=== PATIENT | female | born 1940 | race Caucasian/White ===

== ENCOUNTER → 2023-05-07 06:55 | Outpatient (REF) | payer OTHER, SELFPAY | LOC: RAD 06:55 | PROVIDERS: ATTENDING PHYSICIAN Family Medicine | DX: R41.4 Neurologic neglect syndrome (principal); R53.1 Weakness | CPT/HCPCS: 70450 ==

== ENCOUNTER → 2023-05-22 08:10 | Outpatient (REF) | payer OTHER, SELFPAY ==
[2023-05-22 09:44] LABS: % Eosinophils 1.1 % (0-6); % Immature Granulocytes 0.5 % (0-0.5); % Lymphocytes 15.2 % (20.5-51.1); % Monocytes 9.7 % (1.7-9.3); % Neutrophils 72.5 % (42.2-75.2); Absolute Basophils 0.1 10^3/uL (0-0.2); Absolute Eosinophils 0.1 10^3/uL (0-0.7); Absolute Monocytes 0.6 10^3/uL (0.1-0.6); Absolute Neutrophils 4.5 10^3/uL (1.4-6.5); Hematocrit 36.5 % (37.0-47.0); Hemoglobin 11.7 g/dL (12.0-16.0); Mean Corp Hgb Conc. 32.1 g/dL (33.0-37.0); Mean Corpuscular Volume 90.6 fL (81.0-99.0); Nucleated Red Blood Cells % 0 %; Platelet Count 312 10^3/uL (130-400); Red Blood Cell Count 4.03 10^6/uL (4.20-5.40); Red Cell Dist. Width 14.7 % (11.5-14.5); White Blood Cell Count 6.3 10^3/uL (4.8-10.8)
[2023-05-22 10:04] LABS: ALT (SGPT) 30 U/L (0-35); AST (SGOT) 37 U/L (14-36); Albumin 3.9 g/dl (3.5-5.0); Alkaline Phosphatase 62 U/L (38-126); Blood Urea Nitrogen 16 mg/dl (7-17); Calcium 9.1 mg/dl (8.4-10.2); Carbon Dioxide 30 mmol/L (22-30); Chloride 103 mmol/L (98-107); Glucose 114 mg/dl (70-99); Iron 76 ug/dl (37-170); Sodium 139 mmol/L (135-145); Total Bilirubin 0.3 mg/dl (0.2-1.3); Total Protein 6.2 g/dl (6.3-8.2); eGFR > 60.00
[2023-05-22 10:14] LABS: Percent Saturation 20 % (20-50); Total Iron Binding Capacity 363 ug/dl (265-497)
[2023-05-22 10:38] LABS: Ferritin 9.1 ng/ml (11.1-264.0)
== END ==
LOC: REG 08:10
PROVIDERS: ATTENDING PHYSICIAN Internal Medicine Gastroenterology; FAMILY PHYSICIAN Family Medicine
DX: D50.0 Iron deficiency anemia secondary to blood loss (chronic) (principal)
CPT/HCPCS: 36415; 80053; 82728; 83540; 83550; 85025

== ENCOUNTER → 2023-05-28 11:24 | Outpatient (REF) | payer OTHER, SELFPAY | LOC: DHCBC/DCA 11:24 | PROVIDERS: ATTENDING PHYSICIAN Internal Medicine; FAMILY PHYSICIAN Family Medicine | DX: I25.10 Atherosclerotic heart disease of native coronary artery without angina pectoris (principal); I48.0 Paroxysmal atrial fibrillation | CPT/HCPCS: 78452; 93017; A9500; J2785 ==

== ENCOUNTER → 2023-06-01 08:17 | Outpatient (REF) | payer OTHER, SELFPAY | LOC: HWRAD 08:17 | PROVIDERS: ATTENDING PHYSICIAN Internal Medicine Gastroenterology; FAMILY PHYSICIAN Family Medicine | DX: R10.33 Periumbilical pain (principal); R10.31 Right lower quadrant pain | CPT/HCPCS: 74177; Q9967 ==

== ENCOUNTER → 2023-06-21 11:06 | Outpatient (REF) | payer OTHER, SELFPAY | LOC: RCS 11:06 | PROVIDERS: ATTENDING PHYSICIAN Internal Medicine; FAMILY PHYSICIAN Family Medicine | DX: I25.10 Atherosclerotic heart disease of native coronary artery without angina pectoris (principal); I48.0 Paroxysmal atrial fibrillation | CPT/HCPCS: 93306 ==

== ENCOUNTER 2023-06-25 09:04 | Outpatient (REF) | payer OTHER, SELFPAY ==
[2023-06-25] VITALS (11 sets, daily range): BP systolic 48–140; BP diastolic 56–95
[2023-06-25 09:27] LABS: % Basophils 1.4 % (0-2); % Eosinophils 0.7 % (0-6); % Immature Granulocytes 0.8 % (0-0.5); % Monocytes 10.2 % (1.7-9.3); % Neutrophils 71.9 % (42.2-75.2); Absolute Basophils 0.1 10^3/uL (0-0.2); Absolute Eosinophils 0.1 10^3/uL (0-0.7); Absolute Immature Granulocytes 0.1 10^3/uL (0-0.05); Absolute Lymphocytes 1.1 10^3/uL (1.2-3.4); Absolute Monocytes 0.7 10^3/uL (0.1-0.6); Absolute Neutrophils 5.2 10^3/uL (1.4-6.5); Hematocrit 37.6 % (37.0-47.0); Hemoglobin 12.2 g/dL (12.0-16.0); Mean Corp Hgb Conc. 32.4 g/dL (33.0-37.0); Mean Corpuscular Hgb 28.2 pg (27.0-31.0); Mean Corpuscular Volume 86.8 fL (81.0-99.0); Mean Platelet Volume 10.4 fL (7.4-10.4); Nucleated Red Blood Cells % 0 %; Platelet Count 288 10^3/uL (130-400); Red Blood Cell Count 4.33 10^6/uL (4.20-5.40); Red Cell Dist. Width 14.3 % (11.5-14.5); White Blood Cell Count 7.2 10^3/uL (4.8-10.8)
[2023-06-25 09:38] LABS: INR 0.99; PT 12.9 Sec (11.4-14.6)
== END 2023-06-25 14:28 | disposition home or self-care (01) ==
LOC: RADI 09:04
PROVIDERS: ATTENDING PHYSICIAN Internal Medicine Hematology & Oncology; FAMILY PHYSICIAN Family Medicine
DX: C7B.8 Other secondary neuroendocrine tumors (principal)
CPT/HCPCS: 88307; 36415; 47000; 76942; 85025; 85610; 88333; 88341; 88342; 99152; 99153

== ENCOUNTER → 2023-07-09 08:28 | Outpatient (REF) | payer OTHER, SELFPAY ==
--- NOTE | 2023-06-30 14:31 | WATCHMAN ---
Watchman
Wathcman Procedure
Referred by:: Krery/Vin
Date of Referral:: 06/30/23
[id number] Score
Age in Years (65=0, 65-74=1, >/=75=2): > or = 75
Sex (Female=+1): Female
Congestive Heart Failure History (Yes=+1): No
Hypertension History (Yes=+1): No
Stroke/TIA/Thromboembolism History (Yes=+2): No
Vascular Disease History (Yes=+1): Yes
Diabetes Mellitus (Yes=+1): No
Score: 4
Anticoagulation Recommendations: Recommend anticoagulation (as validated in nonvalvular fib)
HASBLED Score
Hypertenstion (uncontrolled >160mmHG systolic): No
Renal disease (dialysis, transplant, Cr >2.26mg/dL or >200umol/L): No
Liver disease (cirrhosis or bilirubin >2x normal w/ AST/ALT/AP >3x normal: No
Stroke history: No
Prior major bleeding or predisposition to bleeding: Yes
Labile INR(unsable/high INRs,time in therapeutic range <60%): No
Age >65: Yes
Medication usage predisposing to bleeding(ASA, NSAIDS): No
Alcohol use (>/= 8 drinks/week): No
Score: 2
Risk: Anticoagulation can be considered, however patient does have moderate risk for major bleeding (2/100 patient-years)
Electrocardiogram
Interpretation: abnormal
Heart Rate: 55
Rate: bradycardiac
Physician Visits
Cloth Washer:: Vin
Date of Visit:: 06/30/23
Primary Valet Runner:: Dr. Payne
Date of Visit:: 05/11/23
PCP:: Osmel Chaves
Oral Anticoagulation
Post procedure anticoagulation plan:: The patient needs to be on anticoagulation therapy for 6 weeks following implant. If no leak or migration of the device noted at 45 day follow up LYLA, she would need to be on dual antiplatelet therapy following
the implant. After 6 months of dual antiplatelet therapy, she may go to aspirin alone.
Plan
Plan:: 06/30/2023: Consult received from Dr. Banuelos. Patient in to office today to see him to be evaluated for the Watchman procedure. H/o GI bleed and not currently on OAC for her A-fib. Called and spoke to patient. Recent BMP from end of April.
Normal renal function. Assisted with schedule CT watchman for 07/09/2023 at 0900. Provided with contact information. Allowed for and answered questions.
== END ==
LOC: RAD 08:28
PROVIDERS: ATTENDING PHYSICIAN Internal Medicine Cardiovascular Disease; FAMILY PHYSICIAN Family Medicine
DX: I48.0 Paroxysmal atrial fibrillation (principal)
CPT/HCPCS: 75572; Q9967

== ENCOUNTER → 2023-07-30 07:33 | Outpatient (REF) | payer OTHER, SELFPAY | LOC: PET 07:33 | PROVIDERS: ATTENDING PHYSICIAN Internal Medicine Hematology & Oncology | DX: C7A.00 Malignant carcinoid tumor of unspecified site (principal) | CPT/HCPCS: 78815 ==

== ENCOUNTER → 2023-08-30 08:15 | Outpatient (REF) | payer OTHER, SELFPAY ==
[2023-08-30 08:06] VITALS: BMI 20.2
[2023-08-30 09:20] LABS: % Eosinophils 0.4 % (0-6); % Immature Granulocytes 0.7 % (0-0.5); % Lymphocytes 11.2 % (20.5-51.1); % Neutrophils 79.7 % (42.2-75.2); Absolute Basophils 0.1 10^3/uL (0-0.2); Absolute Immature Granulocytes 0.1 10^3/uL (0-0.05); Absolute Monocytes 0.6 10^3/uL (0.1-0.6); Absolute Neutrophils 7.1 10^3/uL (1.4-6.5); Hematocrit 40.2 % (37.0-47.0); Hemoglobin 12.8 g/dL (12.0-16.0); Mean Corp Hgb Conc. 31.8 g/dL (33.0-37.0); Mean Corpuscular Hgb 28.4 pg (27.0-31.0); Mean Corpuscular Volume 89.1 fL (81.0-99.0); Mean Platelet Volume 11.9 fL (7.4-10.4); Nucleated Red Blood Cells % 0 %; Platelet Count 267 10^3/uL (130-400); Red Blood Cell Count 4.51 10^6/uL (4.20-5.40); Red Cell Dist. Width 15.2 % (11.5-14.5)
[2023-08-30 09:29] LABS: INR 1.07
[2023-08-30 09:47] LABS: ALT (SGPT) 28 U/L (0-35); AST (SGOT) 44 U/L (14-36); Albumin 4.4 g/dl (3.5-5.0); Alkaline Phosphatase 85 U/L (38-126); Blood Urea Nitrogen 20 mg/dl (7-17); Calcium 8.7 mg/dl (8.4-10.2); Carbon Dioxide 28 mmol/L (22-30); Chloride 102 mmol/L (98-107); Estimated Creatinine Clearance 38 ml/min; Glucose 95 mg/dl (70-99); Potassium 4.3 mmol/L (3.5-5.1); Sodium 139 mmol/L (135-145); Total Bilirubin 0.5 mg/dl (0.2-1.3); Total Protein 6.8 g/dl (6.3-8.2); eGFR > 60.00
[2023-09-16 11:22] VITALS: BP 129/72; BP_SYST 22
== END ==
LOC: REG 08:15
PROVIDERS: ATTENDING PHYSICIAN Internal Medicine Cardiovascular Disease; FAMILY PHYSICIAN Family Medicine; OTHER PHYSICIAN Internal Medicine
DX: I48.0 Paroxysmal atrial fibrillation (principal); Z01.818 Encounter for other preprocedural examination
CPT/HCPCS: 36415; 80053; 85025; 85610; 86850; 86900; 86901; 87070; 93005

== ENCOUNTER → 2023-08-30 10:43 | Outpatient (REF) | payer OTHER, SELFPAY ==
[2023-08-30 11:00] LABS: % Eosinophils 0.3 % (0-6); % Immature Granulocytes 0.8 % (0-0.5); % Lymphocytes 10.7 % (20.5-51.1); % Monocytes 7.4 % (1.7-9.3); % Neutrophils 79.8 % (42.2-75.2); Absolute Basophils 0.1 10^3/uL (0-0.2); Absolute Immature Granulocytes 0.1 10^3/uL (0-0.05); Absolute Lymphocytes 0.8 10^3/uL (1.2-3.4); Absolute Monocytes 0.6 10^3/uL (0.1-0.6); Absolute Neutrophils 6.3 10^3/uL (1.4-6.5); Hematocrit 37.7 % (37.0-47.0); Hemoglobin 12.2 g/dL (12.0-16.0); Mean Corp Hgb Conc. 32.4 g/dL (33.0-37.0); Mean Corpuscular Hgb 28.8 pg (27.0-31.0); Mean Corpuscular Volume 88.9 fL (81.0-99.0); Mean Platelet Volume 11.2 fL (7.4-10.4); Nucleated Red Blood Cells % 0 %; Platelet Count 248 10^3/uL (130-400); Red Blood Cell Count 4.24 10^6/uL (4.20-5.40); Red Cell Dist. Width 15.2 % (11.5-14.5); White Blood Cell Count 7.8 10^3/uL (4.8-10.8)
[2023-08-30 11:12] LABS: ALT (SGPT) 28 U/L (0-35); AST (SGOT) 44 U/L (14-36); Albumin 4.4 g/dl (3.5-5.0); Alkaline Phosphatase 83 U/L (38-126); Blood Urea Nitrogen 20 mg/dl (7-17); Calcium 8.8 mg/dl (8.4-10.2); Carbon Dioxide 28 mmol/L (22-30); Chloride 102 mmol/L (98-107); Glucose 95 mg/dl (70-99); Potassium 4.4 mmol/L (3.5-5.1); Sodium 139 mmol/L (135-145); Total Bilirubin 0.5 mg/dl (0.2-1.3); Total Protein 6.8 g/dl (6.3-8.2); eGFR > 60.00
== END ==
LOC: OIDL 10:43
PROVIDERS: ATTENDING PHYSICIAN Internal Medicine Hematology & Oncology
DX: C78.7 Secondary malignant neoplasm of liver and intrahepatic bile duct (principal); C7A.00 Malignant carcinoid tumor of unspecified site
CPT/HCPCS: 80053; 85025

== ENCOUNTER 2023-09-13 20:01 | Inpatient (IN) | payer OTHER, SELFPAY ==
[2023-09-13] VITALS (14 sets, daily range): BP systolic 99–140; BP diastolic 52–108; PULSE 55–66; BMI 20.6
[2023-09-13 17:01] LABS: % Basophils 1.3 % (0-2); % Eosinophils 0.3 % (0-6); % Lymphocytes 12.4 % (20.5-51.1); % Monocytes 8.4 % (1.7-9.3); % Neutrophils 76.6 % (42.2-75.2); Absolute Basophils 0.1 10^3/uL (0-0.2); Absolute Immature Granulocytes 0.1 10^3/uL (0-0.05); Absolute Lymphocytes 1.1 10^3/uL (1.2-3.4); Absolute Monocytes 0.7 10^3/uL (0.1-0.6); Absolute Neutrophils 6.7 10^3/uL (1.4-6.5); Hematocrit 24.3 % (37.0-47.0); Hemoglobin 7.9 g/dL (12.0-16.0); Mean Corp Hgb Conc. 32.5 g/dL (33.0-37.0); Mean Corpuscular Hgb 29.3 pg (27.0-31.0); Mean Platelet Volume 11.5 fL (7.4-10.4); Nucleated Red Blood Cells % 0 %; Platelet Count 264 10^3/uL (130-400); Red Cell Dist. Width 15.2 % (11.5-14.5); White Blood Cell Count 8.7 10^3/uL (4.8-10.8)
[2023-09-13 17:17] LABS: AST (SGOT) 40 U/L (14-36); Albumin 3.8 g/dl (3.5-5.0); Blood Urea Nitrogen 23 mg/dl (7-17); Calcium 8.7 mg/dl (8.4-10.2); Carbon Dioxide 26 mmol/L (22-30); Estimated Creatinine Clearance 44 ml/min; Glucose 114 mg/dl (70-99); Potassium 4.1 mmol/L (3.5-5.1); Total Bilirubin 0.2 mg/dl (0.2-1.3); eGFR > 60.00
[2023-09-13 17:24] LABS: ALT (SGPT) 26 U/L (0-35); Alkaline Phosphatase 73 U/L (38-126); Chloride 102 mmol/L (98-107); Sodium 136 mmol/L (135-145)
--- NOTE | 2023-09-13 17:27 | ED.GENMED ---
History of Present Illness
General
Chief Complaint: Rectal Bleeding
Time Seen by Provider: 09/13/23 16:36
History of Present Illness
History of Present Illness:
83-year-old female presents the emergency department for evaluation of lower GI bleeding/maroon-colored stool for the past 'week and a half or so'. She is a history of atrial flutter currently on Eliquis, scheduled for Watchman procedure tomorrow.
She is began to feel short of breath and generally weak as a result of her symptoms. Denies any chest pain. 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 Last dose of
blood thinners was this morning
Past History
Past History
ED Past Medical History: Arrthythmia (Paroxysmal A. flutter) and COPD
ED Past Surgical History: Gynecological
Social History
Tobacco: Non-smoker
Personal:
Living: with family
Family History
Family History: Negative Early CAD
Review of Systems
Review of Systems
Allergies reviewed?: Yes
All Other Systems: ROS reviewed and negative except as documented in HPI and ROS
Phy Exam
Physical Exam
Physical Exam:
GEN: Well appearing, NAD, WDWN
Eyes: PERRLA, EOMs intact, no scleral icterus
HENT: NCAT, oral mucosa moist
Lungs: CTAB, no wheezes, rales, rhonchi, normal chest wall excursion
Cardiac: RRR, no M/R/G, no peripheral edema. Radial pulses 2+ bilat
Abdomen: Hepatomegaly noted, moderate tenderness to the right upper quadrant
Neuro: AO x 3, no focal deficits to BUE/BLE, normal sensation throughout
MSK: No gross deformity or ecchymosis. No edema. No digital clubbing
Skin: No rashes, petechiae. Normal color, no pallor or jaundice.
Psych: Calm, cooperative, proper hygiene
Course
Orders/Labs/Results
Orders:
Orders
09/13/23 16:52
CT Abd/Pel (IV only)-DH only Urgent
Comment:
Reason For Exam: abd pain, rectal bleeding
09/13/23 16:53
Type+Screen Urgent
Complete Blood Count/With Diff Urgent
Comprehensive Metabolic Panel Urgent
09/13/23 18:24
* Blood Bank Products Urgent
Blood Bank Products: *Packed RBC Leuko(PRBC's)
Quantity: 1
Transfuse Today: Yes
Reason: Anemia
09/13/23 19:33
Admit/Transfer Patient As Directed
Co-Sign Provider:
Level of Care: Inpatient admission
Assign to:: Telemetry
Physician / Group: [email or web address]
Diagnosis: acute hematochezia, acutle blood loss andmeia
Reason for Telemetry: Arrhythmia
Date to Stop Telemetry: 09/16/23
Time to Stop Telemetry: 11:00
Reason for Hospitalization: acute hematochezia, acutle blood loss andmeia
Expected length of stay greater than two midnights?: Yes
ELOS- Estimated Length of Stay in days: 3
I certify the patient meets the requirements for IP care: Yes
PRN Pain Medication Management As Directed
May give lesser potent ordered pain med per pt: Yes
preference::
Protocol:: Medication orders for pain may be administered in a
manner that supports deferring to patient preference
when the pt is:
- Requesting an ordered lesser potent pain medication.
Least to most potent pain medications are defined
as: acetaminophen < NSAID < tramadol < opioids
(morphine, oxycodone, hydromorphone).
- Requesting a lesser dose of the same medication IF
ORDERED.
- Requesting a less intrusive route of administration
if both routes are prescribed by the provider (PO <
IV).
09/13/23 19:35
Code Status As Directed
Resuscitation Status: Full Code
09/13/23 21:21
0.9% Sodium Chloride 1000 ml [Nss] 1,000 ml IV 80 mls/hr
09/13/23 21:21
CARDIOLOGY CONSULT Routine
Consulting Provider: Nicole Weaver
Was physician already notified: Yes
Reason for consult: acute hematochezia, ACBA, on Elquis , Pending watchman on 09/13
GASTROINTESTINAL CONSULT Routine
Consulting Provider: Briana Anton
Was physician already notified: Yes
Reason for consult: acute hematochezia, ACBA, on Elquis , Pending watchman on 09/13
Activity As Directed
Activity Level: With Assistance
INT (Intravenous Needle Therapy) As Directed
Comment: Place 2 IV catheters of the largest bore possible until stable
Orthostatic Vital Signs As Directed
Orthostatic VS Frequency: Now
Comment: then every four hours for twenty-four hours
Pneumatic Compression Sleeves As Directed
Type: Knee high
Vital Signs As Directed
Frequency: Per unit guidelines
DX Deep Vein Thrombosis Video Routine
09/13/23 21:45
Budesonide/Formoterol 160/4.5 [Symbicort 160/4.5 Mcg Inhaler] 2 puff INH R BID
09/13/23 21:55
H&H Q6H
09/13/23 22:00
Digoxin [Lanoxin] 125 mcg PO HS
Famotidine [Pepcid] 20 mg IV HS
09/14/23 06:00
Comprehensive Metabolic Panel IN AM
Levothyroxine [Synthroid] 125 mcg PO MoTuWeThFrSa@0600
09/14/23 08:00
mirabegron [Myrbetriq] 25 mg PO DAILY
09/16/23 11:00
DC Protocol for Telemetry ONCE
09/19/23 06:00
Levothyroxine [Synthroid] 187.5 mcg PO FINN@0600
Abnormal Lab Results
09/13/23
16:53
RBC 2.70 L 10^6/uL
(4.20-5.40)
Hgb 7.9 L g/dL
(12.0-16.0)
Hct 24.3 L %
(37.0-47.0)
MCHC 32.5 L g/dL
(33.0-37.0)
RDW 15.2 H %
(11.5-14.5)
MPV 11.5 H fL
(7.4-10.4)
Abs Immat Gran (auto) 0.1 H 10^3/uL
(0-0.05)
Absolute Neuts (auto) 6.7 H 10^3/uL
(1.4-6.5)
Absolute Lymphs (auto) 1.1 L 10^3/uL
(1.2-3.4)
Absolute Monos (auto) 0.7 H 10^3/uL
(0.1-0.6)
Immature Gran % 1.0 H %
(0-0.5)
Neutrophils % 76.6 H %
(42.2-75.2)
Lymphocytes % 12.4 L %
(20.5-51.1)
BUN 23 H mg/dl
(7-17)
Glucose 114 H mg/dl
(70-99)
AST 40 H U/L
(14-36)
Total Protein 6.0 L g/dl
(6.3-8.2)
Crossmatch IS Only See Detail
09/13/23 16:53
09/13/23 16:53
Vital Signs
Initial and Last Documented VS:
Initial Vital Signs
Temp Pulse Resp BP Pulse Ox
98.3 F 65 18 123/53 99
09/13/23 16:10 09/13/23 16:10 09/13/23 16:10 09/13/23 16:10 09/13/23 16:10
Last Documented Vital Signs
Temp Pulse Resp BP Pulse Ox
98.3 F 50 18 128/64 97
09/13/23 21:46 09/13/23 22:19 09/13/23 21:46 09/13/23 21:46 09/13/23 21:46
MDM/Problems Addressed
MDM/Problems Addressed:
Hemoglobin is 7.9, patient is experienced roughly a 4 g drop in the past 2 weeks. No evidence for active bleeding in the emergency department. Will be admitted to the hospitalist service for blood transfusion and further GI workup
*Critical Care Note
Total Time (30-74mins, 75-104mins- exclusive of procedures): 32 minutes
comment:
Critical care time: 32 minutes
Critical care time was exclusive of: Separately billable procedures, treating other patients, and teaching time
Critical care was necessary to treat or prevent imminent or life-threatening deterioration of the following conditions: Blood loss anemia
Critical care time spent personally by me on the following activities:
[x] Review of old charts
[x] Obtaining history from patient or surrogate
[x] Ordering and review of the laboratory studies
[x] Ordering and review of radiographic studies
[x] Ordering and performing treatments and interventions
[x] Patient patient's response to treatment
[x] Development of treatment plan with patient or surrogate
ED Attending Note
-
Portions of this chart may have been created with voice recognition software.� Occasional wrong word or��sound alike� substitutions may have occurred due to the inherent limitations of voice recognition software.
Discharge Plan
Departure
Patient Disposition: Admit
Date of Disposition: 09/13/23
Time of Disposition: 19:07
Admit to: Med/Surg
Presentation/result/management discussed w/ accepting MD/DO: Hospitalist
Patient with high blood pressure during this ER visit?: No
Discharge Problem:
Acute lower gastrointestinal bleeding, Acute blood loss anemia (ABLA)
Interventions
Interventions:
*Risk Screen - Suicide Last Done: 09/13/23 16:10
*General Assessment Last Done: 09/13/23 16:10
*Neglect/Abuse Screening Last Done: 09/13/23 16:10
ED- Fall Risk Assessment Last Done: 09/13/23 16:48
*ED COVID-19 Vaccine History Last Done: 09/13/23 21:17
*Nursing Disposition Last Done: 09/13/23 21:17
BU-Hohnjo-Xpycqppjys Assessment Last Done: 09/13/23 16:48
ED- Cardiac Assessment Last Done: 09/13/23 16:48
ED- Pulmonary Assessment Last Done: 09/13/23 16:48
Discharge Date and Time
Discharge Date/Time: 09/13/23 21:18
--- NOTE | 2023-09-13 19:29 | HPS.HSE ---
Addendum entered and electronically signed by Wolf Anguiano MD 09/14/23 13:23:
Correction:
Recent watchman implant plan for 09/14/23
Paroxysmal atrial fibrillation HX .
Atrial flutter HX .
SVT HX
- Pending watchman implant on Wednesday <del>09/13/23</del> 09/14/23
- Held Eliquis due to acute LGIB
- will need to delay watchman implant per CBC card text consult.
Addendum entered and electronically signed by Wolf Anguiano MD 09/13/23 19:54:
ADDENDUM:
- will need to delay watchman implant per CBC card text consult.
Original Note:
Family Physician
-
Family Physician: Osmel Chaves
Chief Complaint
-
Rectal bleed mixed with stool
History of Present Illness
83F HX on Eliquis, pending Watchman implant on 09/13/23 reduce stroke risk in a patient that is high risk for recurrent GI bleed , multiple arrhythmia including paroxysmal atrial fibrillation, SVT,and prior atrial flutter seen aRT for dark
blood mixed with stools
Acute hematochezia
- onset since this AM
- on Eliquis - last dose was around 8am 09/13/23
- associated with SoB
- Hgb Hgb 7.9 - baseline hi 12s (08/30/23)dropped tootal 4 gb over 2 weeks
- VSS stable
Medical History
Past Medical History
Past Medical History: Reports Other
Additional Past Medical History:
1. Paroxysmal atrial fibrillation.
2. Atrial flutter.
3. SVT.
4. Hyperlipidemia.
5. Recurrent GI bleed requiring transfusion.
6. CAD,99% distal LAD lesion.
7. Gastroesophageal reflux disease.
8. Angiodysplasia of the cecum.
9. Colonic polyps.
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
liver and adrenals.
11. COPD.
12. Pulmonary nodules.
13. Hypothyroidism.
14. Osteoporosis.
15. Balance and gait disturbance.
Past Surgical History: Reports Other
Additional Past Surgical History:
Partial thyroidectomy, total
abdominal hysterectomy.
Social History
Tobacco: Non-smoker
Alcohol: Occasional
Drug: None
Family History
Family History: Not pertinent
Allergies / Home Medications
Allergies reflects when Allergies were last updated in [employer].
Home Medications with original date entered in [employer]
Allergy/Medication List:
Allergies
Allergy/AdvReac Type Severity Reaction Status Date / Time
ampicillin Allergy Hives Verified 09/13/23 16:10
beclomethasone dipropionate Allergy Pt denies Verified 09/13/23 16:10
[From Qvar]
budesonide [From Pulmicort] Allergy pt Verified 09/13/23 16:10
currently
using w/o
adverse
reaction
disopyramide Allergy Severe Verified 09/13/23 16:10
Bradycardia/MUSCLE
SORENESS
disopyramide phosphate Allergy Severe Verified 09/13/23 16:10
[From Norpace] Bradycardia
methicillin Allergy Anaphylaxis Verified 09/13/23 16:10
mold Allergy Unknown Verified 09/13/23 16:10
neomycin Allergy Hives Verified 09/13/23 16:10
omeprazole Allergy muscle Verified 09/13/23 16:10
soreness/Pt
takes
prevacid
without
difficulty
pantoprazole Allergy Hives/Pt Verified 09/13/23 16:10
takes
prevacid
without
difficulty
Penicillins Allergy pt states Verified 09/13/23 16:10
she can
take
penicillin
but not
ampicillin
propafenone HCl Allergy Anaphylaxis/cardiac Verified 09/13/23 16:10
[From Rythmol] arrest
quinidine Allergy Hives Verified 09/13/23 16:10
quinine Allergy Pt never Verified 09/13/23 16:10
heard of
this drug
solifenacin succinate Allergy Pt denies Verified 09/13/23 16:10
[From Vesicare]
Sulfa (Sulfonamide Allergy Hives Verified 09/13/23 16:10
Antibiotics)
sulfamethoxazole Allergy Hives Verified 09/13/23 16:10
tetracycline Allergy Hives Verified 09/13/23 16:10
tiotropium bromide Allergy Pt denies Verified 09/13/23 16:10
[From Spiriva with
HandiHaler]
trimethoprim Allergy Hives Verified 09/13/23 16:10
Home Medications
digoxin 125 mcg (0.125 mg) tablet 0.125 mg PO HS Heart disease 04/08/08
levothyroxine 125 mcg tablet 125 mcg PO MOTUWETHFRSA Thyroid 04/08/08
benzonatate 100 mg capsule 100 mg PO BID 07/12/15
lansoprazole 30 mg capsule,delayed release (Prevacid) 30 mg PO DAILY Gastrointestinal issue 07/12/15
krill 1,000 mg-omega-3 230 mg-dha 60 df-oat-otnblxelj-astaxan capsule 1 cap PO DAILY Supplement 07/18/15
diltiazem HCl 120 mg capsule,extended release 24 hr 120 mg PO HS Blood pressure 07/03/19
levothyroxine 125 mcg tablet 187.5 mcg PO FINN Thyroid 07/03/19
simvastatin 5 mg tablet 5 mg PO HS High cholesterol 07/03/19
vitamins A,C,D-ydmm-ypzlbd 4,296 mcg-226 mg-90 mg capsule (PreserVision AREDS) 1 cap PO DAILY Supplement 07/03/19
budesonide 160 mcg-glycopyr 9 mcg-formot 4.8 mcg/actuation HFA inhaler (Breztri Aerosphere) 2 inh inhalation BID 06/25/23
denosumab 60 mg/mL subcutaneous syringe (Prolia) 60 mg SC [id number] 06/25/23
magnesium 250 mg tablet 250 mg PO DAILY 06/25/23
mirabegron 25 mg tablet,extended release 24 hr (Myrbetriq) 25 mg PO DAILY 06/25/23
Co Q-10 1 dose PO DAILY 08/20/23
Prevagen 1 tab PO DAILY 08/20/23
apixaban 2.5 mg tablet (Eliquis) 2.5 mg PO BID 08/20/23
calcium carbonate (Calcium 600) 600 mg PO DAILY 08/20/23
iron bis glycinate moira 28 mg iron-vit C 60 mg-FA 400 mcg-B12 8mcg cap (Gentle Iron) 1 cap PO 08/20/23
mepolizumab 100 mg/mL subcutaneous auto-injector (Nucala) 100 mg SC Q4W 08/20/23
Review of Systems
-
Constitutional: Reports No Symptoms
EENT: Reports No Symptoms
Respiratory: Reports No Symptoms
Cardiac: Reports No Symptoms
Abdomen/GI: Reports Bloody Stools
: Reports No Symptoms
Musculoskeletal: Reports No Symptoms
Skin: Reports No Symptoms
Neurological: Reports No Symptoms
Endocrine: Reports No Symptoms
Hematologic/Lymphatic: Reports No Symptoms
Psych: Reports No Symptoms
Physical Exam
Vital Signs
Vital Signs
Temp Pulse Resp BP Pulse Ox
98.1 F 61 17 124/59 95
09/13/23 19:19 09/13/23 19:19 09/13/23 19:19 09/13/23 19:19 09/13/23 19:02
Physical Exam
General: Well Developed, Well Nourished and No Apparent Distress
HEENT: NormoCephalic, Moist mucous membranes and Atraumatic
Respiratory: Clear
Cardiac: S1/S2 and Regular Rhythm; No Murmur or Rub
GI: Soft, Non Tender, Non Distended and Normal Bowel Sounds; No Organomegaly
Rectal: Deferred by Provider
Musculoskeletal: No Clubbing, No Cyanosis and No Edema
Skin: No Rash
Neuro: Nonfocal/grossly intact
Laboratory Results
-
09/13/23 16:53
09/13/23 16:53
Laboratory Results
Total Bilirubin 0.2 mg/dl (0.2-1.3) 09/13/23 16:53
AST 40 U/L (14-36) H 09/13/23 16:53
ALT 26 U/L (0-35) 09/13/23 16:53
Alkaline Phosphatase 73 U/L (38-126) 09/13/23 16:53
Data Reviewed
-
Lab Data: Labs Reviewed by me
Old Records: Reviewed
Impression/Plan
-
Reviewed VS: BP120/108 HR 60 POX mid 90
Data
Hgb 7.9 - baseline hi 12s (08/30/23)
nl MCV
BUN 23
Cr 0.8
04/02/22 TTE
LVEF 60-65
Nl RV size and function
mild- mod MR
Nild AR
mild- od TR
Est PASP 25-30
June [address] Jarquin that was normal.
Colonoscopy by Dr. Montana Khan demonstrating medium-size cecal nonbleeding ectasia that were cauterized with APC.
Last hospitalist admission: 06/03/19- 07/06/19
PDx
1. Acute blood loss anemia.
2. Lower GI bleed from angioectasia in the cecum.
3. History of chronic obstructive pulmonary disease, stable.
4. History of atrial fibrillation, stable.
5. Hyperlipidemia.
6. Hypothyroidism.
ASSESSMENT & PLAN
Acute hematochezia LGIB but no active GIB at ER : suspect recurrent Angiodysplasia bleed
Associated wit ACBLA with almost 4 gm drop in 2 weeks
HD stable
HX Recurrent GI bleed requiring transfusion.
HX Angiodysplasia of the cecum.
HX Colonoscopy by Dr. Montana Khan medium-size cecal nonbleeding ectasia that were cauterized with APC. ( june 2019)
HX 7. Gastroesophageal reflux disease.
- Last episode of hematochezia was 3 pm to PPI
- Blood consented at ER
- Agree with blood Tx
- Trend H& H
- NPO and IVF
- IP Pepcid 20 q12H
- Held Eliquis - last dose is today 8am ( 09/12/23)
- GI consult
Recent watchman implant
Paroxysmal atrial fibrillation HX .
Atrial flutter HX .
SVT HX
- Pending watchman implant on Wednesday09/13/23
-Held Eliquis due to acute LGIB
- CBC card consult
Polypharmacy allergy noted
Pre existing condition
Hyperlipidemia.
CAD,99% distal LAD lesion.
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
COPD.
Pulmonary nodules.
Hypothyroidism.
Osteoporosis.
Balance and gait disturbance.
DVT Px: SDC
Code: Full
IP TLM
[2023-09-13 22:00] LABS: Hematocrit 25.1 % (37.0-47.0); Hemoglobin 8.6 g/dL (12.0-16.0)
[2023-09-13] MEDS: NSS 1000 IV (22:18)
[2023-09-13] MEDS: NSS (PRESERVATIVE FREE) 8 ML IV (22:19)
[2023-09-13] MEDS: LANOXIN PO (22:19)
[2023-09-13] MEDS: PEPCID 20 MG IV (22:20)
[2023-09-13] MEDS: NON-FORMULARY ITEM 1 UNIT INH (22:20)
[2023-09-14] VITALS (8 sets, daily range): BP systolic 112–148; BP diastolic 53–76; PULSE 59–77
[2023-09-14] MEDS: SYNTHROID 125 MCG PO (05:23)
[2023-09-14 06:34] LABS: ALT (SGPT) 22 U/L (0-35); AST (SGOT) 37 U/L (14-36); Alkaline Phosphatase 52 U/L (38-126); Blood Urea Nitrogen 20 mg/dl (7-17); Calcium 7.7 mg/dl (8.4-10.2); Carbon Dioxide 24 mmol/L (22-30); Chloride 108 mmol/L (98-107); Estimated Creatinine Clearance 49 ml/min; Glucose 83 mg/dl (70-99); Potassium 4.2 mmol/L (3.5-5.1); Sodium 137 mmol/L (135-145); Total Bilirubin 0.5 mg/dl (0.2-1.3); Total Protein 5.2 g/dl (6.3-8.2); eGFR > 60.00
[2023-09-14] MEDS: NON-FORMULARY ITEM 1 UNIT INH ×2 (07:38→20:22)
--- NOTE | 2023-09-14 08:42 | CON.CAR ---
Addendum entered and electronically signed by Henrry Griffin MD 09/14/23 11:00:
I saw and examined the patient.
The PRINCIPAL EMBEDDED SOFTWARE ENGINEER's note was reviewed and I agree with the note.
83-year-old woman with history of coronary artery disease, coronary vasospasm. paroxysmal atrial fibrillation, SVT ablation, metastatic neuroendocrine carcinoma of hide GI bleed/history of angiodysplasia of cecum. Patient had been maintained on
Eliquis with plan for Watchman device. Patient was scheduled to have Watchman device today but it has been canceled due to development of acute GI bleed with BRBPR. Patient has received 2 units of PRBCs so far. Currently in no distress. No
shortness of breath or chest discomfort remains in sinus rhythm.
-Eliquis being held. Last dose in a.m. on 09/13/2023
-Monitor hemoglobin. Additional PRBCs as directed by primary team
-Treatment of GI bleeding as directed by gastroenterology.
-PAF stable. Currently in sinus. Monitor on telemetry.
-CAD. Stable without angina. Continue medical therapy. Treat anemia/GI bleed.
-Watchman plans on hold till further notice. No plans for watchman this admission. Issues to be reassessed by watchman team.
Original Note:
Consultation
Consultation Request
Date/Time Consultation Requested: 09/13/2023 21:00
Date/Time Consultation Performed: 09/14/2023 09:00
Requesting Provider: Dr. Anguiano
Performing Provider: STARR Soliman for Dr. Griffin
Reason for Consultation: GIB pending Watchman
Medical History
-
Chief Complaint: BRBPR
History of Present Illness:
Tricia Galicia is an 83-year-old female (known to her primary explosive operator grenade, Dr. Payne), with coronary artery disease (99% distal LAD stenosis on 08/20/1999, medical management), paroxysmal atrial fibrillation (short-term Eliquis, being evaluated
for Watchman device), coronary artery vasospasm, paroxysmal SVT s/p radiofrequency ablation x2, (most recently 2000), mild tricuspid regurgitation, dyslipidemia, COPD (lifelong non-smoker, followed at ), hypothyroidism, stage IV metastatic
neuroendocrine carcinoma with hepatic metastasis, and lower GI bleeding in the setting of angiodysplasia of the cecum presents with a chief complaint of BRBPR. She believes her bloody stool started 2 to 3 days ago. She may have been slowly oozing
for the past week. Sometimes she would see blood and other times none. She presented after multiple bloody bowel movements at home. Her hemoglobin was 12.2 on 08/30/2023, she presented with a hemoglobin of 7.9. Cardiology was consulted as the
patient was planned to have a Watchman device placed this morning.
Past Medical History
Past Medical History: Arrhythmias (Paroxysmal atrial fibrillation, PSVT), CAD, Cancer (Hepatic), COPD, Hypercholesterolemia, Hypothyroidism (Prior thyroidectomy), Valvular Disease (mild tricuspid regurgitation) and Other (LGIB)
Past Surgical History: Gynecological, Orthopedic and Other (Thyroidectomy)
Social History
Tobacco: Non-Smoker
Alcohol: None
Drug: None
Employment: Retired
Family History
Family History: Reviewed & Not Pertinent
Allergies / Home Medications
Allergy/AdvReac Type Severity Reaction Status Date / Time
ampicillin Allergy Hives Verified 09/13/23 16:10
beclomethasone dipropionate Allergy Pt denies Verified 09/13/23 16:10
[From Qvar]
budesonide [From Pulmicort] Allergy pt Verified 09/13/23 16:10
currently
using w/o
adverse
reaction
disopyramide Allergy Severe Verified 09/13/23 16:10
Bradycardia/MUSCLE
SORENESS
disopyramide phosphate Allergy Severe Verified 09/13/23 16:10
[From Norpace] Bradycardia
methicillin Allergy Anaphylaxis Verified 09/13/23 16:10
mold Allergy nasal Verified 09/13/23 21:24
congestion
neomycin Allergy Hives Verified 09/13/23 16:10
omeprazole Allergy muscle Verified 09/13/23 16:10
soreness/Pt
takes
prevacid
without
difficulty
pantoprazole Allergy Hives/Pt Verified 09/13/23 16:10
takes
prevacid
without
difficulty
Penicillins Allergy pt states Verified 09/13/23 16:10
she can
take
penicillin
but not
ampicillin
propafenone HCl Allergy Anaphylaxis/cardiac Verified 09/13/23 16:10
[From Rythmol] arrest
quinidine Allergy Hives Verified 09/13/23 16:10
quinine Allergy Pt never Verified 09/13/23 16:10
heard of
this drug
solifenacin succinate Allergy Pt denies Verified 09/13/23 16:10
[From Vesicare]
Sulfa (Sulfonamide Allergy Hives Verified 09/13/23 16:10
Antibiotics)
sulfamethoxazole Allergy Hives Verified 09/13/23 16:10
tetracycline Allergy Hives Verified 09/13/23 16:10
tiotropium bromide Allergy Pt denies Verified 09/13/23 16:10
[From Spiriva with
HandiHaler]
trimethoprim Allergy Hives Verified 09/13/23 16:10
�Medication �Instructions �Recorded �Confirmed �Type
digoxin 125 mcg (0.125 mg) tablet 0.125 mg PO HS Heart disease 04/08/08 09/13/23 History
levothyroxine 125 mcg tablet 125 mcg PO MOTUWETHFRSA Thyroid 04/08/08 09/13/23 History
lansoprazole 30 mg capsule,delayed 30 mg PO DAILY Gastrointestinal 07/12/15 09/13/23 History
release (Prevacid) issue
krill 1,000 mg-omega-3 230 mg-dha 1 cap PO DAILY Supplement 07/18/15 09/13/23 History
60 rz-zqm-sbknwxicq-astaxan capsule
diltiazem HCl 120 mg 120 mg PO HS Blood pressure 07/03/19 09/13/23 History
capsule,extended release 24 hr
levothyroxine 125 mcg tablet 187.5 mcg PO FNIN Thyroid 07/03/19 09/13/23 History
simvastatin 5 mg tablet 5 mg PO HS High cholesterol 07/03/19 09/13/23 History
vitamins A,C,L-gxzl-ikaahn 4,296 1 cap PO DAILY Supplement 07/03/19 09/13/23 History
mcg-226 mg-90 mg capsule
(PreserVision AREDS)
budesonide 160 mcg-glycopyr 9 2 inh inhalation R BID 06/25/23 09/13/23 History
mcg-formot 4.8 mcg/actuation HFA
inhaler (Breztri Aerosphere)
denosumab 60 mg/mL subcutaneous 60 mg SC [id number] 06/25/23 09/13/23 History
syringe (Prolia)
magnesium 250 mg tablet 250 mg PO DAILY 06/25/23 09/13/23 History
mirabegron 25 mg tablet,extended 25 mg PO DAILY 06/25/23 09/13/23 History
release 24 hr (Myrbetriq)
Prevagen 1 tab PO DAILY 08/20/23 09/13/23 History
calcium carbonate (Calcium 600) 600 mg PO DAILY 08/20/23 09/13/23 History
coenzyme Q10 100 mg capsule (Co 100 mg PO DAILY 08/20/23 09/13/23 History
Q-10)
iron bis glycinate moira 28 mg 1 cap PO HS 08/20/23 09/13/23 History
iron-vit C 60 mg-FA 400 mcg-B12
8mcg cap (Gentle Iron)
mepolizumab 100 mg/mL subcutaneous 100 mg SC Q4W 08/20/23 09/13/23 History
auto-injector (Nucala)
sertraline 100 mg tablet 100 mg PO DAILY 09/13/23 09/13/23 History
Review of Systems
-
History Source: Patient
All other systems: Negative unless noted
Constitutional: Fatigue
EENT: No Symptoms
Respiratory: No Symptoms
Cardiac: No Symptoms
Abdomen/GI: Bloody Stools
: No Symptoms
Musculoskeletal: No Symptoms
Skin: No Symptoms
Neurological: No Symptoms
Endocrine: No Symptoms
Hematologic/Lymphatic: No Symptoms
Physical Exam
Vital Signs
Temp Pulse Resp BP Pulse Ox
97.9 F 77 18 140/76 95
09/14/23 07:14 09/14/23 08:14 09/14/23 08:14 09/14/23 07:14 09/14/23 08:14
Lab Results
09/13/23 21:55
09/14/23 05:18
Physical Exam
General: Well Developed, Well Nourished, No Apparent Distress and Comfortable
HEENT: Normocephalic, Anicteric and Moist Mucous Membranes
Respiratory: Clear and Non Labored Respirations
Cardiac: S1/S2 and Regular Rhythm; Negative Peripheral Edema
Breast: Deferred by me
GI: Soft, Non Tender, Non Distended and Normal Bowel Sounds
Rectal: Deferred by Provider
Genito-urinary: No Costovertebral Tender
Musculoskeletal: No Clubbing, No Cyanosis and No Edema
Skin: Warm and Dry
Neuro: AO x 3
Hematologic/Lymphatic: No Lymphadenopathy
Psych: Calm
Impression / Plan
-
Lower GI bleed
-She is down ~4G over approximately 2 weeks
-NPO, GI consulted
-Watchman will need to be delayed
Acute on blood loss anemia, s/p 2U PRBC, transfusion per primary
Paroxysmal atrial fibrillation
-In sinus rhythm, continue diltiazem and digoxin
-Oral Anticoagulation: Apixaban 2.5 mg twice daily (age 83, weight <60 kg), now on hold, last dose 09/13/2023 morning
-[id number]: Score at least 5 (HTN, age 75 or more, Vascular disease, female gender)
-HAS-BLED score of 4
Coronary artery disease
-Stable without chest pain
-Continue medical management
Neuroendocrine carcinoma with hepatic metastasis, stage IV, being followed by Dr. Rios in the outpatient setting
Prior coronary artery spasm, continue diltiazem
PSVT, prior ablations, continue medical therapy
Dyslipidemia
COPD, lifelong non-smoker, followed at
Data Reviewed
-
CT Scan: Report Reviewed by me (Abdomen/pelvis: Innumerable liver metastases, as seen on the previous PET/CT from 07/30/2023. No clear evidence for a new active inflammatory process in the abdomen or pelvis.)
Medical Tests (Nuc Med, Echo etc): Report Reviewed by me (Prior echocardiogram as above)
Labs: Labs Reviewed by me
Old Records: Reviewed
--- NOTE | 2023-09-14 09:54 | W.PN.HOSP.TC ---
Today's Communication/Plan
-
f/w GI recommendations
Holding Eliquis
Keep HGB >8
Assessment / Plan
Assessment / Plan
Physical Exam
General: Well Developed, Well Nourished and No Apparent Distress
HEENT: Normocephalic, Moist mucous membranes and Atraumatic
Respiratory: Clear
Cardiac: S1/S2 and Regular Rhythm; No Murmur or Rub
GI: Soft, Non Tender, Non Distended and Normal Bowel Sounds;
Musculoskeletal: No Clubbing, No Cyanosis and No Edema
Skin: No Rash
Neuro: Nonfocal/grossly intact
Psych: calm
# Acute blood loss anemia due to LGIB but no active GIB at ER : suspect recurrent Angiodysplasia bleed
Associated wit ACBLA with almost 4 gm drop in 2 weeks
HD stable
HX Recurrent GI bleed requiring transfusion.
HX Angiodysplasia of the cecum.
HX Colonoscopy by Dr. Montana Khan medium-size cecal nonbleeding ectasia that were cauterized with APC. ( june 2019)
HX Gastroesophageal reflux disease.
- Last episode of hematochezia was 3 pm to PPI
- s/p one unit of RBCs, HGB around 8
- NPO and IVF
- IP Pepcid 20 q12H
- Held Eliquis - Last dose in a.m. on 09/13/2023
- Appreciate GI help
# Paroxysmal atrial fibrillation HX .
Atrial flutter HX .
SVT HX
in SR now
d/w cardiology, cancel plan for watchman implant for now.
-Held Eliquis due to acute LGIB
Polypharmacy allergy noted
Pre existing condition
Hyperlipidemia.
CAD,99% distal LAD lesion.
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
COPD.
Pulmonary nodules.
Hypothyroidism.
Osteoporosis.
Balance and gait disturbance.
Total time spent to see the patient, examine the patient on the floor, review data and lab results, discuss treatment plan with patient, nursing staff around 55 minutes
Anticipated Discharge: > 48 hours
Subjective/Interval History
-
Date of Service: September 14, 2023
No abd pain
No rectal bleeding since admission
Objective Data
-
Labs:
Laboratory Results
09/13/23 09/14/23
21:55 05:18
Hgb 8.6 L
Hct 25.1 L
Sodium 137
Potassium 4.2
Chloride 108 H
Carbon Dioxide 24
BUN 20 H
Creatinine 0.7
Glucose 83
Calcium 7.7 L
Total Bilirubin 0.5
AST 37 H
ALT 22
Alkaline Phosphatase 52
Vital Signs:
Vital Signs
Temp Pulse Resp BP Pulse Ox
97.9 F 77 18 140/76 95
09/14/23 07:14 09/14/23 08:14 09/14/23 08:14 09/14/23 07:14 09/14/23 08:14
I&O
09/13/23 09/14/23 09/15/23
06:59 06:59 06:59
Intake Total 1100 / 1100
Balance 1100 / 1100
--- NOTE | 2023-09-14 10:12 | CON.GI ---
Consultation
-
Date/Time Consultation Performed: 09/14/23
Performing Provider: Edwin/Desean
Reason for Consultation: acute hematochezia, ACBA, on Elquis , Pending watchman on 09/13
Medical History
Chief Complaint / HPI
Chief Complaint: bloody stools
History of Present Illness:
Patient is an 83 year old female with past medical history of acute blood loss anemia in 2019 secondary to cecal AVM s/p cauterization with APC, metastatic neuroendocrine carcinoma, COPD, CAD, aflutter currently on eliquis and was scheduled for
Watchman procedure today, who presented to ED from home 09/12 for bloody stools for about 1-1.5 weeks. Initially she noticed a 'pink tinge' on the outside of her stools, that then progressed throughout the week to more bloody. She has multiple bowel
movements per day, most recently around 9:30am today which she says had more blood than before. Prior to this, her bowel movements have been daily, brown, formed, and easy to pass; no diarrhea, constipation, melena. She reports fatigue, abdominal
distension and that her 'gut doesn't feel good.' She denies abdominal pain, nausea, vomiting, difficulty/pain/coughing with swallowing, changes in weight. Denies lightheadedness, dizziness. She saw Dr. Farnsworth in the GI office 08/23, and her
abdominal bloating was thought to be secondary to hepatomegaly, lactose intolerance, or IBS. The patient also reports abdominal pain being a common side effect of lanreotide. She had an abdominal CT in April that showed metastatic lesions, and liver
biopsy showed well-differentiated neuroendocrine carcinoma. Unknown primary source, but possibly from a mediastinal or lung lesion. She began monthly lanreotide in July, with the plan to continue for 3 months and then repeat labwork.
Labs on admission notable for hgb of 7.9 which repeated to 8.6. Baseline hgb appears to be ~12 in past year, most recently 12.8 on 08/30/23.
Past Medical History
Past Medical History: Arrhythmias (atrial flutter; paroxysmal SVT s/p ablation x2 2000), CAD, Cancer (metastatic neuroendocrine carcinoma), COPD (follows with Dr. Hinojosa at [place]), GERD, Hypothyroidism (s/p thyroidectomy), Valvular Disease
(nonrheumatic regurgitation: aortic, mitral, tricuspid valves) and Other (h/o acute blood loss anemia 2/2 cecal AVM 2019; colon polyps, uterine fibroids, OA)
Past Surgical History: Cardiac (s/p ablation x2, most recently in 2000), Gynecological (hysterectomy), Orthopedic (R wrist, f), Tonsilectomy and Other (thyroidectomy)
Social History
Tobacco: Non-Smoker
Alcohol: Occasional (~1 drink per week)
Drug: None
Personal:
Living: With Family
Family History
Family History: Other (afib (brother), Lewy body dementia (brother), alcoholism (brother), ?training executive cancer (aunt))
Allergies / Home Medications
Allergy/AdvReac Type Severity Reaction Status Date / Time
ampicillin Allergy Hives Verified 09/13/23 16:10
beclomethasone dipropionate Allergy Pt denies Verified 09/13/23 16:10
[From Qvar]
budesonide [From Pulmicort] Allergy pt Verified 09/13/23 16:10
currently
using w/o
adverse
reaction
disopyramide Allergy Severe Verified 09/13/23 16:10
Bradycardia/MUSCLE
SORENESS
disopyramide phosphate Allergy Severe Verified 09/13/23 16:10
[From Norpace] Bradycardia
methicillin Allergy Anaphylaxis Verified 09/13/23 16:10
mold Allergy nasal Verified 09/13/23 21:24
congestion
neomycin Allergy Hives Verified 09/13/23 16:10
omeprazole Allergy muscle Verified 09/13/23 16:10
soreness/Pt
takes
prevacid
without
difficulty
pantoprazole Allergy Hives/Pt Verified 09/13/23 16:10
takes
prevacid
without
difficulty
Penicillins Allergy pt states Verified 09/13/23 16:10
she can
take
penicillin
but not
ampicillin
propafenone HCl Allergy Anaphylaxis/cardiac Verified 09/13/23 16:10
[From Rythmol] arrest
quinidine Allergy Hives Verified 09/13/23 16:10
quinine Allergy Pt never Verified 09/13/23 16:10
heard of
this drug
solifenacin succinate Allergy Pt denies Verified 09/13/23 16:10
[From Vesicare]
Sulfa (Sulfonamide Allergy Hives Verified 09/13/23 16:10
Antibiotics)
sulfamethoxazole Allergy Hives Verified 09/13/23 16:10
tetracycline Allergy Hives Verified 09/13/23 16:10
tiotropium bromide Allergy Pt denies Verified 09/13/23 16:10
[From Spiriva with
HandiHaler]
trimethoprim Allergy Hives Verified 09/13/23 16:10
�Medication �Instructions �Recorded
digoxin 125 mcg (0.125 mg) tablet 0.125 mg PO HS Heart disease 04/08/08
levothyroxine 125 mcg tablet 125 mcg PO MOTUWETHFRSA Thyroid 04/08/08
lansoprazole 30 mg capsule,delayed 30 mg PO DAILY Gastrointestinal 07/12/15
release (Prevacid) issue
krill 1,000 mg-omega-3 230 mg-dha 1 cap PO DAILY Supplement 07/18/15
60 hz-hpg-idbdirnex-astaxan capsule
diltiazem HCl 120 mg 120 mg PO HS Blood pressure 07/03/19
capsule,extended release 24 hr
levothyroxine 125 mcg tablet 187.5 mcg PO FINN Thyroid 07/03/19
simvastatin 5 mg tablet 5 mg PO HS High cholesterol 07/03/19
vitamins A,C,F-hryx-fyicet 4,296 1 cap PO DAILY Supplement 07/03/19
mcg-226 mg-90 mg capsule
(PreserVision AREDS)
budesonide 160 mcg-glycopyr 9 2 inh inhalation R BID 06/25/23
mcg-formot 4.8 mcg/actuation HFA
inhaler (Breztri Aerosphere)
denosumab 60 mg/mL subcutaneous 60 mg SC [id number] 06/25/23
syringe (Prolia)
magnesium 250 mg tablet 250 mg PO DAILY 06/25/23
mirabegron 25 mg tablet,extended 25 mg PO DAILY 06/25/23
release 24 hr (Myrbetriq)
Prevagen 1 tab PO DAILY 08/20/23
calcium carbonate (Calcium 600) 600 mg PO DAILY 08/20/23
coenzyme Q10 100 mg capsule (Co 100 mg PO DAILY 08/20/23
Q-10)
iron bis glycinate moira 28 mg 1 cap PO HS 08/20/23
iron-vit C 60 mg-FA 400 mcg-B12
8mcg cap (Gentle Iron)
mepolizumab 100 mg/mL subcutaneous 100 mg SC Q4W 08/20/23
auto-injector (Nucala)
sertraline 100 mg tablet 100 mg PO DAILY 09/13/23
Review of Systems
-
All other systems: A 12 pt ROS was Negative except as stated above in HPI
Vital Signs
Temp Pulse Resp BP Pulse Ox
97.9 F 77 18 140/76 95
09/14/23 07:14 09/14/23 08:14 09/14/23 08:14 09/14/23 07:14 09/14/23 08:14
Physical Exam
Exam
General: Sitting comfortably in bed, no acute distress.
Heart: Regular rate and rhythm.
Lungs: Nonlabored breathing. Anterior lung montoya clear and equal to auscultation bilaterally.
GI: Normal bowel sounds present. Palpable tender hepatomegaly. Otherwise abdomen soft, nontender, nondistended. No rebound, rigidity, guarding.
Results
WBC 8.7 10^3/uL (4.8-10.8) 09/13/23 16:53
Hgb 8.6 g/dL (12.0-16.0) L 09/13/23 21:55
Hct 25.1 % (37.0-47.0) L 09/13/23 21:55
MCV 90.0 fL (81.0-99.0) 09/13/23 16:53
Plt Count 264 10^3/uL (130-400) 09/13/23 16:53
Absolute Neuts (auto) 6.7 10^3/uL (1.4-6.5) H 09/13/23 16:53
Sodium 137 mmol/L (135-145) 09/14/23 05:18
Potassium 4.2 mmol/L (3.5-5.1) 09/14/23 05:18
Chloride 108 mmol/L (98-107) H 09/14/23 05:18
Carbon Dioxide 24 mmol/L (22-30) 09/14/23 05:18
BUN 20 mg/dl (7-17) H 09/14/23 05:18
Creatinine 0.7 mg/dL (0.6-1.0) 09/14/23 05:18
Calcium 7.7 mg/dl (8.4-10.2) L 09/14/23 05:18
Total Bilirubin 0.5 mg/dl (0.2-1.3) 09/14/23 05:18
AST 37 U/L (14-36) H 09/14/23 05:18
ALT 22 U/L (0-35) 09/14/23 05:18
Alkaline Phosphatase 52 U/L (38-126) 09/14/23 05:18
Diagnostic Image Results:
07/30/2023 PET/CT�IMPRESSION:
1. INNUMERABLE HEPATIC METASTASES which do not demonstrate increased radiopharmaceutical activity (suggesting that most of the hepatic metastatic disease is poorly differentiated malignancy without somatostatin receptors).
2. Increased radiopharmaceutical activity in the ADRENAL GLANDS suggesting bilateral adrenal metastases.
3. 1.8 cm soft tissue mass in the subaortic space of the left side of the MEDIASTINUM which is most suggestive of a PRIMARY NEUROENDOCRINE TUMOR.
4. Small sub-6 mm solid pulmonary nodules in both lungs (inflammatory, infectious, or metastatic).
06/25/2023 liver biopsy well-differentiated neuroendocrine tumor grade 3
06/01/2023 CT abdomen and pelvis with oral and IV contrast shows hepatic metastatic disease of uncertain origin at least 20 low attenuating lesions were identified within the liver, mild scarring seen within the lung bases with several scattered
nonspecific nodules measuring up to 3 mm in the left lower lobe unlikely to represent mets but not excluded, grade 1 L4-L5 anterolisthesis.1
PET/CT skull-thigh 07/30/23:
IMPRESSION:
1. INNUMERABLE HEPATIC METASTASES which do not demonstrate increased radiopharmaceutical activity (suggesting that most of the hepatic metastatic disease is poorly differentiated malignancy without somatostatin receptors).
2. Increased radiopharmaceutical activity in the ADRENAL GLANDS suggesting bilateral adrenal metastases.
3. 1.8 cm soft tissue mass in the subaortic space of the left side of the MEDIASTINUM which is most suggestive of a PRIMARY NEUROENDOCRINE TUMOR.
4. Small sub-6 mm solid pulmonary nodules in both lungs (inflammatory, infectious, or metastatic).
Abdomen/Pelvis CT 09/13/23:
FINDINGS:
CHEST: Bibasilar subsegmental atelectasis and tiny bilateral pulmonary nodules. Mild cardiac enlargement.
ABDOMEN:
Innumerable liver metastases are redemonstrated throughout the left and right hepatic lobes. The gallbladder, bile ducts, pancreas, and spleen are unremarkable. Minor thickening of the bilateral adrenal glands. The bilateral kidneys are within
normal limits. No hydronephrosis.
The abdominal aorta is normal in caliber and contains mild to moderate calcified atherosclerosis. The portal, splenic, and superior mesenteric veins are patent.
No abdominal or retroperitoneal lymphadenopathy.
No bowel wall thickening, obstruction, or inflammation. No extraluminal free air, fluid collection, or ascites.
PELVIS: The uterus is surgically absent. Small dependent calcification in the right posterior urinary bladder lumen.
SKELETON: Chronic degenerative changes of the spine. Grade 1 degenerative anterolisthesis of L4 on L5. Mild degenerative findings also involve the bilateral sacroiliac joints, hips, and symphysis pubis.
IMPRESSION:
Innumerable liver metastases, as seen on the previous PET/CT from 07/30/2023. No clear evidence for a new active inflammatory process in the abdomen or pelvis.
Prior GI Procedures:
EGD:
07/04/2019: normal esophagus, small hiatal hernia, mild antral gastritis, gastric polyps; negative for celiac, H pylori, dysplasia
Colonoscopy:
07/05/2019 ([facility]): single nonbleeding colonic angioectasia in the cecum treated with APC, diverticulosis in the sigmoid colon
Assessment / Plan
-
Patient is an 83 year old female with past medical history of cecal AVM s/p cauterization with APC 2019, metastatic neuroendocrine carcinoma, COPD, CAD, aflutter currently on eliquis and was scheduled for Watchman procedure today, who presented to
ED from home 09/12 for hematochezia.
Impression:
Hematochezia
- Hgb 7.9 on admission; baseline 12.8 on 08/30/23. VSS.
- Suspect lower GI source, possible AVM vs diverticular bleed.
- Last eliquis dose was 09/12 --> now being held
History of cecal AVM and associated acute blood loss anemia in 2019
Diverticulitis
Metastatic neuroendocrine carcinoma
COPD
CAD
Atrial flutter
Hypothyroidism
Recommendations:
- Hold eliquis. Will allow at least 48 hours from last dose before GI procedures given clinical stability.
- Transfuse prn per primary team.
- Plan for colonoscopy and possible push enteroscopy 09/15 pending clinical course.
- Continue full liquid diet. Will need to be on clear liquids starting tomorrow.
- Will order colonoscopy bowel prep tomorrow.
-
-
Thank you for consultation and allowing me to participate in the patient's care. Please call the recreation technician GI physician during the after hours with any questions or concerns.
[2023-09-14] MEDS: NSS 1000 IV ×2 (10:49→23:23)
[2023-09-14 13:15] LABS: Hemoglobin 8.5 g/dL (12.0-16.0)
--- NOTE | 2023-09-14 15:56 | CM ---
Alert awake oriented patient who lives with her James who lives in independent living [facility] with an elevator.She is independent in driving and in all activities of daily living.Offered VN she declined.
No adaptive devices
Never had VN/SNF
Ph[facility]acy [facility]
PCP Dr Osmel Chaves
PLAN Home declined VN
[2023-09-14] MEDS: LANOXIN 125 MCG PO (21:02)
[2023-09-14] MEDS: PEPCID 20 MG IV (21:03)
[2023-09-14] MEDS: NSS (PRESERVATIVE FREE) 8 ML IV (21:03)
[2023-09-15 03:42] VITALS: BP 121/73
[2023-09-15] MEDS: SYNTHROID 125 MCG PO (05:17)
[2023-09-15 05:55] LABS: Hematocrit 24.3 % (37.0-47.0); Hemoglobin 8.3 g/dL (12.0-16.0); Mean Corp Hgb Conc. 34.2 g/dL (33.0-37.0); Mean Corpuscular Volume 87.7 fL (81.0-99.0); Mean Platelet Volume 11.5 fL (7.4-10.4); Platelet Count 202 10^3/uL (130-400); Red Blood Cell Count 2.77 10^6/uL (4.20-5.40); Red Cell Dist. Width 15.3 % (11.5-14.5); White Blood Cell Count 5.6 10^3/uL (4.8-10.8)
[2023-09-15 06:07] LABS: INR 1.08
[2023-09-15 06:14] LABS: ALT (SGPT) 23 U/L (0-35); AST (SGOT) 38 U/L (14-36); Alkaline Phosphatase 58 U/L (38-126); Blood Urea Nitrogen 12 mg/dl (7-17); Calcium 7.7 mg/dl (8.4-10.2); Carbon Dioxide 26 mmol/L (22-30); Chloride 109 mmol/L (98-107); Estimated Creatinine Clearance 49 ml/min; Glucose 96 mg/dl (70-99); Iron 22 ug/dl (37-170); Potassium 3.9 mmol/L (3.5-5.1); Sodium 137 mmol/L (135-145); Total Bilirubin 0.4 mg/dl (0.2-1.3); eGFR > 60.00
[2023-09-15 06:24] LABS: Percent Saturation 6 % (20-50); Total Iron Binding Capacity 339 ug/dl (265-497)
[2023-09-15 06:50] LABS: Ferritin 12.7 ng/ml (11.1-264.0)
[2023-09-15 07:00] VITALS: BP 145/72
--- NOTE | 2023-09-15 08:04 | W.PN.CD ---
Today's Communication / Plan
-
- Plan for GI work up
- resume Eliquis 2.5 mg BID once risk of bleeding is low.
- Likely Watchman in 2-3 weeks.
Impression / Plan
-
Lower GI bleed
-She is down ~4G over approximately 2 weeks
-Presented with 7.9- stable now around 8,3
-Colonoscopy as per GI
-Watchman will need to be delayed - likely at least 1-2 weeks of Eliquis and then LYLA before watchman.
Acute on blood loss anemia, s/p 2U PRBC, transfusion per primary
Paroxysmal atrial fibrillation
-In sinus rhythm, continue diltiazem and digoxin
-Oral Anticoagulation: Apixaban 2.5 mg twice daily (age 83, weight <60 kg), now on hold, last dose 09/13/2023 morning
-[id number]: Score at least 5 (HTN, age 75 or more, Vascular disease, female gender)
-HAS-BLED score of 4
-resume Eliquis 2.5 mg BID once risk of bleeding is low.
Coronary artery disease
-Stable without chest pain
-Continue medical management
Neuroendocrine carcinoma with hepatic metastasis, stage IV, being followed by Dr. Rios in the outpatient setting
Prior coronary artery spasm, continue diltiazem
PSVT, prior ablations, continue medical therapy
Dyslipidemia
COPD, lifelong non-smoker, followed at
Physical Exam
Vital Signs/Labs
Vital Signs
Temp Pulse Resp BP Pulse Ox
98.4 F 64 18 145/72 97
09/15/23 07:00 09/15/23 07:00 09/15/23 07:00 09/15/23 07:00 09/15/23 07:00
09/14/23 09/15/23 09/16/23
06:59 06:59 06:59
Actual Weight 49.623 kg
07/24/24 05:18
09/15/23 05:18
PT 14.0 Sec (11.4-14.6) 09/15/23 05:18
INR 1.08 09/15/23 05:18
Physical Exam
Constitutional: No acute distress and Comfortable
EENT: Anicteric and Moist mucous membranes
Cardiovascular: Rhythm & rate is regular, JVD pressure is normal and Systolic murmur absent
Respiratory: Respiratory effort normal, Lungs clear to auscul., Wheeze Absent and Crackles Absent
GI: Soft, Non tender and Normal bowel sounds
Neuro/Psych: Alert, Oriented, AO x 3 and Motor deficits absent
Data Reviewed
-
Date of Service: September 15, 2023
Medical Decision Making: Reviewed Test Results, Independent Historian Assessment and Test Interpretation
EKG: Tracing Personally Visualized and interpreted and Report Reviewed by me
Labs: Labs Reviewed by me
Old Records: Reviewed
[2023-09-15] MEDS: NON-FORMULARY ITEM 1 UNIT INH ×2 (08:05→19:26)
--- NOTE | 2023-09-15 09:16 | W.PN.HOSP.TC ---
Today's Communication/Plan
-
IV iron
Liquid diet and prep
No need for IVF today
Assessment / Plan
Assessment / Plan
Physical Exam
General: Well Developed, Well Nourished and No Apparent Distress
HEENT: Normocephalic, Moist mucous membranes and Atraumatic
Respiratory: Clear
Cardiac: S1/S2 and Regular Rhythm; No Murmur or Rub
GI: Soft, Non Tender, Non Distended and Normal Bowel Sounds;
Musculoskeletal: No Clubbing, No Cyanosis and No Edema
Skin: No Rash
Neuro: Nonfocal/grossly intact
Psych: calm
# Acute blood loss anemia due to LGIB but no active GIB at ER : suspect recurrent Angiodysplasia bleed
Associated wit ACBLA with almost 4 gm drop in 2 weeks
HD stable
HX Recurrent GI bleed requiring transfusion.
HX Angiodysplasia of the cecum.
HX Colonoscopy by Dr. Montana Khan medium-size cecal nonbleeding ectasia that were cauterized with APC. ( june 2019)
HX Gastroesophageal reflux disease.
- Last episode of hematochezia was 3 pm to PPI
- s/p one unit of RBCs, HGB around 8
- clear liquid diet, NPO past MN
- IP Pepcid 20 q12H
- Held Eliquis - Last dose in a.m. on 09/13/2023
- Appreciate GI help
# Paroxysmal atrial fibrillation HX .
Atrial flutter HX .
SVT HX
in SR now
d/w cardiology, Watchman in 2-3 weeks.
-Held Eliquis due to acute LGIB
# Iron deficiency anemia
will give IV Iron
Polypharmacy allergy noted
Pre existing condition
Hyperlipidemia.
CAD,99% distal LAD lesion.
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
COPD.
Pulmonary nodules.
Hypothyroidism.
Osteoporosis.
Balance and gait disturbance.
Total time spent to see the patient, examine the patient on the floor, review data and lab results, discuss treatment plan with patient, nursing staff around 55 minutes
Anticipated Discharge: 24 - 48 hours
Subjective/Interval History
-
Date of Service: September 15, 2023
No abdominal pain
No rectal bleeding
Objective Data
-
Labs:
Laboratory Results
09/15/23
05:18
WBC 5.6
Hgb 8.3 L
Hct 24.3 L
Plt Count 202 D
PT 14.0
INR 1.08
Sodium 137
Potassium 3.9
Chloride 109 H
Carbon Dioxide 26
BUN 12
Creatinine 0.7
Glucose 96
Calcium 7.7 L
Total Bilirubin 0.4
AST 38 H
ALT 23
Alkaline Phosphatase 58
Vital Signs:
Vital Signs
Temp Pulse Resp BP Pulse Ox
98.4 F 71 18 145/72 97
09/15/23 07:00 09/15/23 08:05 09/15/23 08:05 09/15/23 07:00 09/15/23 08:05
I&O
09/14/23 09/15/23 09/16/23
06:59 06:59 06:59
Intake Total 1100 / 1100 1800 / 1800
Balance 1100 / 1100 1800 / 1800
--- NOTE | 2023-09-15 10:20 | PN.CDI ---
Addendum entered and electronically signed by Marcia Riggs MD 09/15/23 10:42:
Yes, GI bleed is related to/exacerbated by Eliquis
Original Note:
CDI
- -
CDI:
Physician Documentation Request
Admit Date: 09/13/23 20:01
Dear Doctor Keely,
Patient admitted for GI bleed.
ED Physician Documentation: 'lower GI bleeding/maroon-colored stool for the past 'week and a half or so'. She is a history of atrial flutter currently on Eliquis'
09/13 Hospitalist PN: 'Acute blood loss anemia due to LGIB...Held Eliquis - Last dose in a.m. on 09/13/2023'
Please clarify the relationship between these conditions:
Yes, GI bleed is related to/exacerbated by Eliquis
No, GI bleed is not related to/exacerbated by Eliquis
Unable to determine
Use of terms such as suspected, likely, concern for, or probable (associated with a specific diagnosis that is being evaluated, monitored, or treated as if it exists) are acceptable and can be coded in the inpatient setting, when documented at the
time of discharge.
Thank you,
Miroslava Zhao RN, BSN
CDI Specialist
Available via [facility] text
Please use your independent medical judgment in providing your response.
[2023-09-15 11:00] VITALS: BP 138/59
--- NOTE | 2023-09-15 11:19 | W.PN.GI.CBS2 ---
Addendum entered and electronically signed by Briana Anton MD 09/15/23 16:40:
I saw and examined the patient.
The GREY PERCHER's note was reviewed and I agree with the note.
Impression:
Hematochezia. Last Eliquis 09/12
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
Metastatic neuroendocrine carcinoma
COPD
CAD
Atrial flutter
Hypothyroidism
plan
Bowel prep today
push enteroscopy /colonoscopy tomorrow
monitor Hb
Original Note:
Today's Communication / Plan
-
Bowel prep tonight, plan for colonoscopy tomorrow
Assessment / Plan
-
Patient is an 83 year old female with past medical history of cecal AVM s/p cauterization with APC 2019, metastatic neuroendocrine carcinoma, COPD, CAD, aflutter currently on eliquis, who presented to ED from home 09/12 for hematochezia. On
admission, her hgb was 7.9; her baseline hgb is around 12.8 on 08/30/23. No hemodynamic instability. Normal BUN.
Impression:
Hematochezia
- s/p 1u pRBC transfusion 09/12.
- Hgb stable, 8.3 today. VSS, no hemodynamic instability.
- Suspect lower GI source, possible AVM vs diverticular bleed. No active GI bleeding at this time.
- Last eliquis dose was 09/12
Iron deficiency anemia
- Ferritin 12.7; TSAT (Fe/TIBC)= 6.5%
- Likely secondary to GI blood loss over past 1.5 weeks
History of cecal AVM and associated acute blood loss anemia in 2020 s/p APC
Diverticulosis
Metastatic neuroendocrine carcinoma
COPD
CAD
Atrial flutter
Hypothyroidism
Recommendations:
- Hold eliquis. Continue SCDs and ambulation as tolerated.
- Transfuse prn for hgb < 8.0
- Continue clear liquid diet.
- Bowel prep ordered to start at 1700- discussed with patient.
- Plan for colonoscopy and possible push enteroscopy 09/15 pending clinical course.
- Consider IV vs PO iron in setting of iron deficiency anemia.
Subjective
Subjective
Date of Service: September 15, 2023
She feels well today, no complaints. She denies abdominal pain, bloating, nausea, vomiting. Her last bowel movement was yesterday AM, which she reports had 'dark red blood' mixed in the stool. Otherwise, no rectal bleeding since that bowel movement.
She ambulates independently around the room with ease, no lightheadedness, dizziness. She reports mild shortness of breath that unchanged from her baseline COPD; no chest pain. She is in good spirits and reports she feels well supported by family,
friends, and her government instructor who just visited her.
Objective
Data Reviewed
Laboratory Data:
Laboratory Results
09/15/23 05:18
09/15/23 05:18
Laboratory Results
PT 14.0 Sec (11.4-14.6) 09/15/23 05:18
INR 1.08 09/15/23 05:18
Total Bilirubin 0.4 mg/dl (0.2-1.3) 09/15/23 05:18
AST 38 U/L (14-36) H 09/15/23 05:18
ALT 23 U/L (0-35) 09/15/23 05:18
Alkaline Phosphatase 58 U/L (38-126) 09/15/23 05:18
Vital Signs and I&O:
Vital Signs
Temp Pulse Resp BP Pulse Ox
98.4 F 71 18 145/72 97
09/15/23 07:00 09/15/23 08:05 09/15/23 08:05 09/15/23 07:00 09/15/23 08:05
I&O
09/14/23 09/15/23 09/16/23
06:59 06:59 06:59
Intake Total 1100 / 1100 1800 / 1800
Balance 1100 / 1100 1800 / 1800
Physical Exam
Physical Exam
General: Sitting
[2023-09-15] MEDS: FERRLECIT 110 MG IV (13:32)
[2023-09-15 15:00] VITALS: BP 122/60
[2023-09-15] MEDS: NULYTELY SOLUTION 4 LITERS PO (16:39)
[2023-09-15 19:33] VITALS: BP 128/61
[2023-09-15] MEDS: LANOXIN 125 MCG PO (21:39)
[2023-09-15] MEDS: PEPCID 20 MG IV (21:39)
[2023-09-15] MEDS: NSS (PRESERVATIVE FREE) 8 ML IV (21:39)
[2023-09-15 23:32] VITALS: BP 133/73
[2023-09-16] VITALS (9 sets, daily range): BP systolic 20–141; BP diastolic 56–82
[2023-09-16] MEDS: SYNTHROID 125 MCG PO (05:24)
[2023-09-16 06:51] LABS: Hematocrit 23.4 % (37.0-47.0); Hemoglobin 7.9 g/dL (12.0-16.0); Mean Corp Hgb Conc. 33.8 g/dL (33.0-37.0); Mean Corpuscular Hgb 29.5 pg (27.0-31.0); Mean Corpuscular Volume 87.3 fL (81.0-99.0); Platelet Count 232 10^3/uL (130-400); Red Blood Cell Count 2.68 10^6/uL (4.20-5.40); Red Cell Dist. Width 15.6 % (11.5-14.5); White Blood Cell Count 7.5 10^3/uL (4.8-10.8)
[2023-09-16] MEDS: NON-FORMULARY ITEM 2 UNIT INH (08:07)
--- NOTE | 2023-09-16 10:30 | W.PN.HOSP.TC ---
Today's Communication/Plan
-
GI procedure
NPO
IV Iron
Assessment / Plan
Assessment / Plan
Physical Exam
General: Well Developed, Well Nourished and No Apparent Distress
HEENT: Normocephalic, Moist mucous membranes and Atraumatic
Respiratory: Clear
Cardiac: S1/S2 and Regular Rhythm; No Murmur or Rub
GI: Soft, Non Tender, Non Distended and Normal Bowel Sounds;
Musculoskeletal: No Clubbing, No Cyanosis and No Edema
Skin: No Rash
Neuro: Nonfocal/grossly intact
Psych: calm
# Acute blood loss anemia due to LGIB but no active GIB at ER : suspect recurrent Angiodysplasia bleed
Associated wit ACBLA with almost 4 gm drop in 2 weeks
HD stable
HX Recurrent GI bleed requiring transfusion.
HX Angiodysplasia of the cecum.
HX Colonoscopy by Dr. Montana Khan medium-size cecal nonbleeding ectasia that were cauterized with APC. ( june 2019)
HX Gastroesophageal reflux disease.
- s/p one unit of RBCs, HGB around 7.9
- clear liquid diet, NPO past MN
- IP Pepcid 20 q12H
- Held Eliquis - Last dose in a.m. on 09/13/2023
- Appreciate GI help
# Paroxysmal atrial fibrillation HX .
Atrial flutter HX .
SVT HX
in SR now
d/w cardiology, Watchman in 2-3 weeks.
-Held Eliquis due to acute LGIB
# Iron deficiency anemia
c/w IV Iron
Polypharmacy allergy noted
Pre existing condition
Hyperlipidemia.
CAD,99% distal LAD lesion.
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
COPD.
Pulmonary nodules.
Hypothyroidism.
Osteoporosis.
Balance and gait disturbance.
Total time spent to see the patient, examine the patient on the floor, review data and lab results, discuss treatment plan with patient, , nursing staff around 55 minutes
Anticipated Discharge: Within 24 hours
Subjective/Interval History
-
Date of Service: September 16, 2023
Did the bowel prep
No rectal bleeding
Objective Data
-
Labs:
Laboratory Results
09/16/23
06:36
WBC 7.5
Hgb 7.9 L
Hct 23.4 L
Plt Count 232
Vital Signs:
Vital Signs
Temp Pulse Resp BP Pulse Ox
98.4 F 80 16 133/69 96
09/16/23 07:00 09/16/23 08:13 09/16/23 08:13 09/16/23 07:00 09/16/23 08:13
I&O
09/15/23 09/16/23 09/17/23
06:59 06:59 06:59
Intake Total 1800 / 1800 110 / 110
Balance 1800 / 1800 110 / 110
[2023-09-16] MEDS: FERRLECIT 110 MG IV (13:02)
[2023-09-16] MEDS: NON-FORMULARY ITEM 1 UNIT INH (19:57)
[2023-09-16] MEDS: LANOXIN 125 MCG PO (21:38)
[2023-09-16] MEDS: PEPCID 20 MG IV (21:38)
[2023-09-16] MEDS: NSS (PRESERVATIVE FREE) 8 ML IV (21:38)
[2023-09-17 03:30] VITALS: BP 138/68
[2023-09-17] MEDS: SYNTHROID 125 MCG PO (05:50)
[2023-09-17 07:42] LABS: Hematocrit 24.1 % (37.0-47.0); Mean Corp Hgb Conc. 33.2 g/dL (33.0-37.0); Mean Corpuscular Hgb 29.7 pg (27.0-31.0); Mean Corpuscular Volume 89.6 fL (81.0-99.0); Mean Platelet Volume 11.3 fL (7.4-10.4); Platelet Count 280 10^3/uL (130-400); Red Blood Cell Count 2.69 10^6/uL (4.20-5.40); White Blood Cell Count 6.6 10^3/uL (4.8-10.8)
[2023-09-17] MEDS: NON-FORMULARY ITEM 1 UNIT INH (07:44)
[2023-09-17 07:55] LABS: Blood Urea Nitrogen 8 mg/dl (7-17); Calcium 7.7 mg/dl (8.4-10.2); Carbon Dioxide 25 mmol/L (22-30); Chloride 108 mmol/L (98-107); Estimated Creatinine Clearance 49 ml/min; Glucose 89 mg/dl (70-99); Potassium 3.9 mmol/L (3.5-5.1); Sodium 137 mmol/L (135-145); eGFR > 60.00
[2023-09-17 08:09] VITALS: BP 114/57
--- NOTE | 2023-09-17 10:00 | W.PN.HOSP.TC ---
Today's Communication/Plan
-
presence of AVM/ colonic-intestinal angiodysplasia . She might be at risk of recurrent GI bleeding.
Willr each out o Dr Phillips to know more about her cancer treatment plan
Assessment / Plan
Assessment / Plan
Physical Exam
General: Well Developed, Well Nourished and No Apparent Distress
HEENT: Normocephalic, Moist mucous membranes and Atraumatic
Respiratory: Clear
Cardiac: S1/S2 and Regular Rhythm; No Murmur or Rub
GI: Soft, Non Tender, Non Distended and Normal Bowel Sounds;
Musculoskeletal: No Clubbing, No Cyanosis and No Edema
Skin: No Rash
Neuro: Nonfocal/grossly intact
Psych: calm
# Acute blood loss anemia due to LGIB but no active GIB at ER : suspect recurrent Angiodysplasia bleed
Associated wit ACBLA with almost 4 gm drop in 2 weeks
s/p colonoscopy 09/15 with Four non-bleeding colonic angioectasias. Treated with argon plasma coagulation (APC).
HX Recurrent GI bleed requiring transfusion.
HX Angiodysplasia of the cecum.
HX Colonoscopy by Dr. Montana Khan medium-size cecal nonbleeding ectasia that were cauterized with APC. ( june 2019)
HX Gastroesophageal reflux disease.
- s/p one unit of RBCs, HGB around 7.9
- clear liquid diet
- IP Pepcid 20 q12H
- Held Eliquis - Last dose in a.m. on 09/13/2023
- Appreciate GI help
# Paroxysmal atrial fibrillation HX .
Atrial flutter HX .
SVT HX
in SR now
d/w cardiology, Watchman in 2-3 weeks.
-Held Eliquis due to acute LGIB, due to presence of AVM. She might be at risk of recurrent GI bleeding
# Stage IV neuroendocrine cancer with liver metastases.
Will reach out to Dr Phillips to know more about prognosis.
# Iron deficiency anemia
c/w IV Iron
Polypharmacy allergy noted
Pre existing condition
Hyperlipidemia.
CAD,99% distal LAD lesion.
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
COPD.
Pulmonary nodules.
Hypothyroidism.
Osteoporosis.
Balance and gait disturbance.
Total time spent to see the patient, examine the patient on the floor, review data and lab results, discuss treatment plan with patient, , nursing staff around 57 minutes
Anticipated Discharge: 24 - 48 hours
Subjective/Interval History
-
Date of Service: September 17, 2023
No sob
No fevers
No rectal bleeding
No abdominal pain or nausea
Objective Data
-
Labs:
Laboratory Results
09/17/23 09/17/23
06:41 06:42
WBC 6.6
Hgb 8.0 L
Hct 24.1 L
Plt Count 280 D
Sodium 137
Potassium 3.9
Chloride 108 H
Carbon Dioxide 25
BUN 8
Creatinine 0.7
Glucose 89
Calcium 7.7 L
Vital Signs:
Vital Signs
Temp Pulse Resp BP Pulse Ox
98.7 F 81 18 114/57 99
09/17/23 08:09 09/17/23 08:09 09/17/23 08:09 09/17/23 08:09 09/17/23 08:09
I&O
09/16/23 09/17/23 09/18/23
06:59 06:59 06:59
Intake Total 110 / 110 980 / 980
Balance 110 / 110 980 / 980
[2023-09-17 11:30] VITALS: BP 112/65
--- NOTE | 2023-09-17 12:42 | W.PN.GI.CBS2 ---
Today's Communication / Plan
-
Ok to restart eliquis
Assessment / Plan
-
Patient is an 83 year old female with past medical history of cecal AVM s/p cauterization with APC 2019, metastatic neuroendocrine carcinoma, COPD, CAD, aflutter currently on eliquis, who presented to ED from home 09/12 for hematochezia. On
admission, her hgb was 7.9; her baseline hgb is around 12.8 on 08/30/23. No hemodynamic instability. Normal BUN.
Impression:
Hematochezia
- s/p 1u pRBC transfusion 09/12.
- Hgb stable, 8.0 today. VSS, no hemodynamic instability.
- S/p push enteroscopy (normal) and colonoscopy (4 small angiectasias without bleeding in cecum s/p APC, old blood throughout colon)- no active site of bleeding identified
- Suspect lower GI source of bleeding from angioectasia or diverticular bleeding, which has resolved spontaneously prior to colonoscopy/EGD. No ongoing bleeding at this time.
Iron deficiency anemia
- Ferritin 12.7; TSAT (Fe/TIBC)= 6.5%
- Likely secondary to GI blood loss over past 1.5 weeks
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
Diverticulosis
Metastatic neuroendocrine carcinoma
COPD
CAD
Atrial flutter
Hypothyroidism
Recommendations:
- Given that her acute GI bleeding has resolved, would restart eliquis for atrial flutter and hypercoagulability from malignancy.
- Continue low residue diet.
Subjective
Subjective
Date of Service: September 17, 2023
She feels well. Denies abdominal pain, nausea, vomiting, diarrhea, constipation. Her last bowel movement was 09/13 and was bloody, but she has not had any bleeding since then.
Objective
Data Reviewed
Laboratory Data:
Laboratory Results
09/17/23 06:41
07/26/24 06:42
Laboratory Results
PT 14.0 Sec (11.4-14.6) 09/15/23 05:18
INR 1.08 09/15/23 05:18
Total Bilirubin 0.4 mg/dl (0.2-1.3) 09/15/23 05:18
AST 38 U/L (14-36) H 09/15/23 05:18
ALT 23 U/L (0-35) 09/15/23 05:18
Alkaline Phosphatase 58 U/L (38-126) 09/15/23 05:18
Vital Signs and I&O:
Vital Signs
Temp Pulse Resp BP Pulse Ox
98.4 F 62 16 112/65 97
09/17/23 11:30 09/17/23 11:30 09/17/23 11:30 09/17/23 11:30 09/17/23 11:30
I&O
09/16/23 09/17/23 09/18/23
06:59 06:59 06:59
Intake Total 110 / 110 980 / 980
Balance 110 / 110 980 / 980
Physical Exam
Physical Exam
General: Sitting comfortably in bed, no acute distress.
Heart: Regular rate and rhythm.
Lungs: Nonlabored breathing.
GI: Normal bowel sounds present. Abdomen soft, nondistended. Mild tenderness to palpation, hepatomegaly. No rebound, rigidity, guarding.
[2023-09-17] MEDS: FERRLECIT 110 MG IV (14:03)
[2023-09-17 15:52] VITALS: BP 122/58
[2023-09-17] MEDS: NON-FORMULARY ITEM 2 UNIT INH (17:58)
[2023-09-17] MEDS: MORPHINE SULFATE 2 MG IV (18:39)
[2023-09-17 19:00] VITALS: BP 133/69
[2023-09-17 19:59] LABS: Troponin I < 0.012 ng/ml
[2023-09-17] MEDS: ELIQUIS 2.5 MG PO (21:18)
[2023-09-17] MEDS: PEPCID 20 MG IV (21:19)
[2023-09-17] MEDS: NSS (PRESERVATIVE FREE) 8 ML IV (21:19)
[2023-09-17] MEDS: LANOXIN 125 MCG PO (21:22)
[2023-09-17 23:06] VITALS: BP 105/57
[2023-09-18 03:20] VITALS: BP 127/70
[2023-09-18] MEDS: SYNTHROID 125 MCG PO (06:12)
[2023-09-18 07:28] VITALS: BP 130/64
[2023-09-18] MEDS: NON-FORMULARY ITEM 2 UNIT INH (08:03)
[2023-09-18 08:23] LABS: Hematocrit 22.7 % (37.0-47.0); Hemoglobin 7.3 g/dL (12.0-16.0); Mean Corp Hgb Conc. 32.2 g/dL (33.0-37.0); Mean Corpuscular Hgb 29.4 pg (27.0-31.0); Mean Corpuscular Volume 91.5 fL (81.0-99.0); Mean Platelet Volume 12.6 fL (7.4-10.4); Platelet Count 174 10^3/uL (130-400); Red Blood Cell Count 2.48 10^6/uL (4.20-5.40); Red Cell Dist. Width 16.4 % (11.5-14.5); White Blood Cell Count 6.7 10^3/uL (4.8-10.8)
[2023-09-18] MEDS: ELIQUIS 2.5 MG PO (08:33)
--- NOTE | 2023-09-18 08:33 | W.PN.HOSP.TC ---
Addendum entered and electronically signed by Marcia Riggs MD 09/18/23 13:26:
Addendum
repeat HGB was 7.8, higher than earlier, no active gI bleeding
She tolerated diet well
Plan to go home and f/w PCP. OP CBC in one week
d/w GI, ok to dc
Total discharge time spent to see the patient, examine the patient on the floor, review data and lab results, discuss discharge plan with patient, GI doctor, nursing staff around 65 minutes
Original Note:
Today's Communication/Plan
-
Likely dc today
Recheck HGB before discharge since AM HGB dropped to 7.3 from 8 yesterday
Assessment / Plan
Assessment / Plan
Physical Exam
General: Well Developed, Well Nourished and No Apparent Distress
HEENT: Normocephalic, Moist mucous membranes and Atraumatic
Respiratory: Clear
Cardiac: S1/S2 and Regular Rhythm; No Murmur or Rub
GI: Soft, Non Tender, Non Distended and Normal Bowel Sounds;
Musculoskeletal: No Clubbing, No Cyanosis and No Edema
Skin: No Rash
Neuro: Nonfocal/grossly intact
Psych: calm
# Acute blood loss anemia due to LGIB but no active GIB at ER : suspect recurrent Angiodysplasia bleed
Associated with ACBLA with almost 4 gm drop in 2 weeks
s/p colonoscopy 09/15 with Four non-bleeding colonic angioectasias. Treated with argon plasma coagulation (APC).
HX Recurrent GI bleed requiring transfusion.
HX Angiodysplasia of the cecum.
HX Colonoscopy by Dr. Montana Khan medium-size cecal nonbleeding ectasia that were cauterized with APC. ( june 2019)
HX Gastroesophageal reflux disease.
- s/p one unit of RBCs, HGB around 7.9
- on low residue diet
- IP Pepcid 20 q12H
- Held Eliquis - Last dose in a.m. on 09/13/2023, resumed PM dose of 09/16
- Appreciate GI help
# Paroxysmal atrial fibrillation HX .
Atrial flutter HX .
SVT HX
in SR now
d/w cardiology, Watchman in 2-3 weeks.
-Held Eliquis due to acute LGIB, due to presence of AVM. Resumed Eliquis 09/16. She might be at risk of recurrent GI bleeding
# Stage IV neuroendocrine cancer with liver metastases.
Will reach out to Dr Phillips to know more about prognosis.
# Iron deficiency anemia
c/w IV Iron
Polypharmacy allergy noted
Pre existing condition
Hyperlipidemia.
CAD,99% distal LAD lesion.
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
COPD.
Pulmonary nodules.
Hypothyroidism.
Osteoporosis.
Balance and gait disturbance.
Total time spent to see the patient, examine the patient on the floor, review data and lab results, discuss treatment plan with patient, , nursing staff around 57 minutes
Anticipated Discharge: Within 24 hours
Subjective/Interval History
-
Date of Service: September 18, 2023
Doing well
Denies abd pain or chest pain
Denied rectal bleeding
Objective Data
-
Labs:
Laboratory Results
09/18/23
05:39
WBC 6.7
Hgb 7.3 L
Hct 22.7 L
Plt Count 174 D
Vital Signs:
Vital Signs
Temp Pulse Resp BP Pulse Ox
97.9 F 64 16 130/64 97
09/18/23 07:28 09/18/23 08:04 09/18/23 08:04 09/18/23 07:28 09/18/23 08:04
I&O
09/17/23 09/18/23 09/19/23
06:59 06:59 06:59
Intake Total 980 / 980 540 / 540
Balance 980 / 980 540 / 540
[2023-09-18 11:06] VITALS: BP 122/55
[2023-09-18 11:48] LABS: Hemoglobin 7.8 g/dL (12.0-16.0)
[2023-09-18] MEDS: FERRLECIT 110 MG IV (12:39)
--- NOTE | 2023-09-18 13:12 | W.DCSUMMARY ---
Discharge Summary
Discharge Data
Date of Admission: 09/13/23
Date of Discharge: 09/18/23
-
Pending Results: No
Hospital Course
83 years old female admitted with bloody stools for one week. On admission, she was hemodynamically stable but found to be anemic with hemoglobin of 7.9, down from her baseline of around 12.8 on 08/30/2023. Repeat hemoglobin was 8.6. No hemodynamic
instability. Normal BUN. She was supposed to have Watchman procedure but was postponed in setting of active GI bleeding. She has known diverticulosis. Colonoscopy in 2019 showed non-bleeding colonic angioectasia. Treated with argon plasma
coagulation (APC). Patient received 1 unit of blood transfusion. She received intravenous iron. She had colonoscopy 09/15 with four non-bleeding colonic angioectasias. Treated with argon plasma coagulation (APC). She did not have recurrent GI
bleeding in the hospital. She was evaluated by antique finisher and recommended outpatient follow-up. Long discussion regarding whether to go back on systemic anticoagulation or continue with aspirin only with patient and her family. After discussing
potential benefits and side effects, decision was made to resume Eliquis treatment and monitor closely. Patient was recently diagnosed with neuroendocrine carcinoma, she has liver metastasis. She is following with Dr. Phillips but has not started
treatment yet. She tolerated diet well. Patient remained hemodynamically stable and was discharged in a stable condition.
Discharge Plan
-
Patient Disposition: Home (Routine Discharge)
Discharge Diagnosis/Procedures: Acute blood loss anemia due to lower gastrointestinal bleeding
Diet: As tolerated
Blood Work: CBC in one week
Referrals:
Osmel Chaves MD [Family Provider] - in one to two weeks
Prescriptions:
Continued
levothyroxine 125 MCG tablet
125 mcg PO [id number]
digoxin 0.125 MG tablet
0.125 mg PO HS
lansoprazole [Prevacid] 30 MG capsule,delayed release(DR/EC)
30 mg PO DAILY
[id number]-bid-[id number]-[id number]-ast 1 EACH capsule
1 cap PO DAILY
simvastatin 5 MG tablet
5 mg PO HS
levothyroxine 125 MCG tablet
187.5 mcg PO FINN
Rx Instructions:
daily except Sundays
diltiazem HCl 120 MG capsule,extended release 24hr
120 mg PO HS
Patient Comments:
PT STATES SHE TAKES AT HS
PreserVision AREDS 1 CAP capsule
1 cap PO DAILY
magnesium 250 mg Tablet
250 mg PO DAILY
Prolia 60 mg/mL Syringe
60 mg SC [id number]
Rx Instructions:
due June and Dec
mirabegron [Myrbetriq] 25 mg Tablet Extended Release 24 Hr
25 mg PO DAILY
Breztri Aerosphere 160-9-4.8 mcg/actuation Hfa Aerosol Inhaler
2 inh INHALATION R BID
calcium carbonate [Calcium 600] 600 mg calcium (1,500 mg) Tablet
600 mg PO DAILY
coenzyme Q10 [Co Q-10] 100 mg Capsule
100 mg PO DAILY
Gentle Iron 28 mg iron-60mg -400 mcg-8 mcg Capsule
1 cap PO HS
Prevagen
1 tab PO DAILY
Nucala 100 mg/mL Auto-Injector
100 mg SC Q4W
sertraline 100 mg tablet
100 mg PO DAILY
Discharge Orders:
Discharge Patient (As Directed); Ordered 09/18/23
Ordered By: Marcia Riggs
Discharge Date and Time
Print Language: [place]IZ[place]
== END 2023-09-18 14:17 | disposition home or self-care (01) | DRG 378 ==
LOC: 3 WEST ACU 20:01
PROVIDERS: Internal Medicine Gastroenterology; Physician Assistant; Student in an Organized Health Care Education/Training Program; ADMITTING PHYSICIAN Internal Medicine; ATTENDING PHYSICIAN Internal Medicine; EMERGENCY PHYSICIAN Emergency Medicine; FAMILY PHYSICIAN Family Medicine; OTHER PHYSICIAN Internal Medicine; OTHER PHYSICIAN Internal Medicine Cardiovascular Disease
PROC: 30233N1 Transfusion of Nonautologous Red Blood Cells into Peripheral Vein, Percutaneous Approach (ICD-10-PCS; 2023-09-13)
PROC: 0DJ08ZZ Inspection of Upper Intestinal Tract, Via Natural or Artificial Opening Endoscopic (ICD-10-PCS; 2023-09-16)
PROC: 0W3P8ZZ Control Bleeding in Gastrointestinal Tract, Via Natural or Artificial Opening Endoscopic (ICD-10-PCS; 2023-09-16)
DX: K55.21 Angiodysplasia of colon with hemorrhage (principal); C7A.8 Other malignant neuroendocrine tumors; D62 Acute posthemorrhagic anemia; C7B.8 Other secondary neuroendocrine tumors; I48.92 Unspecified atrial flutter; J44.9 Chronic obstructive pulmonary disease, unspecified; E89.0 Postprocedural hypothyroidism; G89.3 Neoplasm related pain (acute) (chronic); I48.0 Paroxysmal atrial fibrillation; K21.9 Gastro-esophageal reflux disease without esophagitis; E78.5 Hyperlipidemia, unspecified; I25.10 Atherosclerotic heart disease of native coronary artery without angina pectoris; M81.0 Age-related osteoporosis without current pathological fracture; K57.30 Diverticulosis of large intestine without perforation or abscess without bleeding; K64.8 Other hemorrhoids; K29.70 Gastritis, unspecified, without bleeding; R26.89 Other abnormalities of gait and mobility; Z79.01 Long term (current) use of anticoagulants; Z79.51 Long term (current) use of inhaled steroids; Z79.890 Hormone replacement therapy; Z79.899 Other long term (current) drug therapy; Z87.19 Personal history of other diseases of the digestive system; Z86.79 Personal history of other diseases of the circulatory system; Z86.010 Personal history of colon polyps; Z90.710 Acquired absence of both cervix and uterus; Z88.1 Allergy status to other antibiotic agents; Z88.2 Allergy status to sulfonamides; Z88.3 Allergy status to other anti-infective agents; Z80.0 Family history of malignant neoplasm of digestive organs
CPT/HCPCS: 36430; 74177; 80048; 80053; 82728; 83540; 83550; 84484; 85014; 85018; 85025; 85027; 85610; 86850; 86900; 86901; 86920; 93005; 94640; 99291; J2916; P9016; Q9967

== ENCOUNTER 2023-09-24 21:38 | Emergency (ER) | payer OTHER, SELFPAY ==
[2023-09-24 21:39] VITALS: BP 124/51
[2023-09-24] MEDS: NSS 1000 IV (22:40)
--- NOTE | 2023-09-24 22:40 | ED.GENMED ---
History of Present Illness
General
Chief Complaint: Dizziness
Source: patient, spouse and family
Exam Limitations: none
Time Seen by Provider: 09/24/23 22:19
Nursing documentation reviewed up to this point in time: agreed with
History of Present Illness
History of Present Illness:
83-year-old female who presents with dizziness onset yesterday while going to her pulmonary doctor for her Nucala shot felt unsteady when she walked, possibly worse with head movement, symptoms improved after drinking some water really displayed a
blood pressure at that time, her symptoms returned this evening, family was concerned that she had low blood sugar given some honey without any relief of her symptoms no slurred speech arm or leg weakness she has chronic COPD on Nucala,
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
admitted recently with GI issues anemia being treated with blood transfusions and iron infusions her recent stools have been brown
Past History
Past History
ED Past Medical History: Arrthythmia (Paroxysmal A. flutter), Cancer and COPD; Negative NIDDM or Seizures
ED Past Surgical History: Gynecological
Social History
Tobacco: Non-smoker
Alcohol: None
Drug: None
Personal:
Living: with family
Employment: Retired
Family History
Family History: Negative Early CAD
Review of Systems
Review of Systems
All Other Systems: Not applicable
Constitutional: Denies fever or fatigue
EENT: Reports no symptoms
Respiratory: Reports no symptoms
Cardiac: Reports no symptoms
ABD/GI: Reports no symptoms; Denies diarrhea, bloody stools or black stools
: Reports no symptoms
Neurological: Reports dizzy; Denies weakness or numbness
Hematologic/Lymphatic: Reports no symptoms
Psychiatric: Reports no symptoms
Phy Exam
Physical Exam
Physical Exam:
Physical Exam
General: no apparent distress, not acutely ill
Neck: No tongue bite
Heart: s1/s2 regular rate and rhythm, no murmur. equal radial pulses.
Lungs: no acute respiratory distress.
Abdomen: Nontender
Neuro: alert and oriented. no focal neurological deficits normal finger-nose bilaterally 1-2 beats of horizontal nystagmus to the left
Skin: no rash
Psychiatric: well kept. interactive and cooperative
Extremities: no edema.
Course
Orders/Labs/Results
Orders:
Orders
09/24/23 22:32
CT Head W/o Iv Contrast Urgent
Comment:
Reason For Exam: vertigo AF,
Bedside Glucose- Treatment ONCE
Cardiac Monitoring- Treatment ONCE
IV Insert/Care/Rem.- Treatment PRN
0.9% Sodium Chloride 1000 ml [Nss] 1,000 ml IV BOLUS
Meclizine [Antivert] 25 mg PO NOW STA
09/24/23 22:33
Electrocardiogram (*1) Stat
Reason for Study: Other
Other Reason for Exam: neuro symptoms
EKG- Treatment ONCE
09/24/23 23:21
Complete Blood Count/With Diff Urgent
Comprehensive Metabolic Panel Urgent
Digoxin Urgent
Comment: ADD ON
09/24/23 23:43
Add On- LAB Urgent
Tests Added?: Digoxin
Abnormal Lab Results
09/24/23
23:21
RBC 2.62 L 10^6/uL
(4.20-5.40)
Hgb 7.8 L g/dL
(12.0-16.0)
Hct 25.3 L %
(37.0-47.0)
MCHC 30.8 L g/dL
(33.0-37.0)
RDW 17.8 H %
(11.5-14.5)
MPV 11.1 H fL
(7.4-10.4)
Abs Immat Gran (auto) 0.1 H 10^3/uL
(0-0.05)
Absolute Lymphs (auto) 0.9 L 10^3/uL
(1.2-3.4)
Absolute Monos (auto) 0.8 H 10^3/uL
(0.1-0.6)
Immature Gran % 1.2 H %
(0-0.5)
Neutrophils % 75.4 H %
(42.2-75.2)
Lymphocytes % 11.9 L %
(20.5-51.1)
Monocytes % 9.9 H %
(1.7-9.3)
BUN 21 H mg/dl
(7-17)
Glucose 104 H mg/dl
(70-99)
AST 37 H U/L
(14-36)
Total Protein 5.7 L g/dl
(6.3-8.2)
Albumin 3.4 L g/dl
(3.5-5.0)
09/24/23 23:21
09/24/23 23:21
Vital Signs
Initial and Last Documented VS:
Initial Vital Signs
Temp Pulse Resp BP Pulse Ox
98.5 F 60 18 124/51 96
09/24/23 21:39 09/24/23 21:39 09/24/23 21:39 09/24/23 21:39 09/24/23 21:39
Last Documented Vital Signs
Temp Pulse Resp BP Pulse Ox
98.5 F 72 22 156/68 95
09/24/23 21:39 09/25/23 00:12 09/25/23 00:12 09/25/23 00:12 09/25/23 00:12
MDM/Problems Addressed
Differential Diagnosis Includes:
Vertigo arrhythmia electrolyte abnormality anemia mass, doubt CVA,
MDM/Problems Addressed:
Dizziness
Chronic conditions affecting care: Arrhythmia, Neurological disorder and Cancer
Acute Exacerbation and/or Progression of Chronic Illness: Arrhythmia, Neurological disorder and Cancer
*Radiology
Radiology exam reviewed: radiology read reviewed
*Pulse Oximetry
Patient hypoxic: no
*EKG
Interpreted by ED Provider?: Yes
Interpretation: abnormal
Comparison EKG: changes noted
Heart Rate: 60
Rate: bradycardiac
Rhythm: sinus and junctional
Ischemia: non-specific ST changes
*[facility] Promoter Interpretation
Rate: bradycardiac
Interpretation: abnormal
Heart Rate: 64
Rhythm: junctional
*Critical Care Note
Total Time (30-74mins, 75-104mins- exclusive of procedures): Not Applicable
Data Reviewed
Review of Other/Old Records Reveals: Labs
Source: patient and records
Update Note
Update Note:
Update, H&H noted at her baseline, EKG noted she has been bradycardic previously, digoxin will check a level
Update patient feeling better no longer dizzy, received fluids and meclizine CT scan report
ED Attending Note
-
Portions of this chart may have been created with voice recognition software.� Occasional wrong word or��sound alike� substitutions may have occurred due to the inherent limitations of voice recognition software.
Discharge Plan
Departure
Patient Disposition: Home (Routine Discharge)
Date of Disposition: 09/25/23
Time of Disposition: 00:34
Patient with high blood pressure during this ER visit?: No
Condition: Good
Discharge Problem:
Vertigo
Instructions: Vertigo (a Type of Dizziness) (DC), Dizziness
Prescriptions:
New
meclizine 25 mg tablet
25 mg PO BID PRN (Reason: dizziness) Qty: 14 0RF
No Action
levothyroxine 125 MCG tablet
125 mcg PO MOTUWETHFRSA
digoxin 0.125 MG tablet
0.125 mg PO HS
lansoprazole [Prevacid] 30 MG capsule,delayed release(DR/EC)
30 mg PO DAILY
[id number]-ast 1 EACH capsule
1 cap PO DAILY
simvastatin 5 MG tablet
5 mg PO HS
levothyroxine 125 MCG tablet
187.5 mcg PO FINN
Rx Instructions:
daily except Sundays
diltiazem HCl 120 MG capsule,extended release 24hr
120 mg PO HS
Patient Comments:
PT STATES SHE TAKES AT HS
PreserVision AREDS 1 CAP capsule
1 cap PO DAILY
magnesium 250 mg Tablet
250 mg PO DAILY
Prolia 60 mg/mL Syringe
60 mg SC [id number]
Rx Instructions:
due June and Dec
mirabegron [Myrbetriq] 25 mg Tablet Extended Release 24 Hr
25 mg PO DAILY
Breztri Aerosphere 160-9-4.8 mcg/actuation Hfa Aerosol Inhaler
2 inh INHALATION R BID
calcium carbonate [Calcium 600] 600 mg calcium (1,500 mg) Tablet
600 mg PO DAILY
coenzyme Q10 [Co Q-10] 100 mg Capsule
100 mg PO DAILY
Gentle Iron 28 mg iron-60mg -400 mcg-8 mcg Capsule
1 cap PO HS
Prevagen
1 tab PO DAILY
Nucala 100 mg/mL Auto-Injector
100 mg SC Q4W
sertraline 100 mg tablet
100 mg PO DAILY
Eliquis 2.5 mg tablet
2.5 mg PO BID Qty: 60 0RF
Referrals:
UNKNOWN - PT DOES,NOT KNOW [Family Provider] -
Interventions
Interventions:
*General Assessment Last Done: 09/24/23 22:32
ED- Fall Risk Assessment Last Done: 09/24/23 22:32
*ED COVID-19 Vaccine History Last Done: 09/24/23 22:32
ED- Neurological Assessment Last Done: 09/24/23 22:32
ED- Cardiac Assessment Last Done: 09/24/23 22:32
ED Swallowing Screen Last Done: 09/25/23 00:16
Discharge Date and Time
Print Language: [id number]
[2023-09-24 23:29] LABS: % Basophils 0.8 % (0-2); % Eosinophils 0.8 % (0-6); % Immature Granulocytes 1.2 % (0-0.5); % Lymphocytes 11.9 % (20.5-51.1); % Monocytes 9.9 % (1.7-9.3); % Neutrophils 75.4 % (42.2-75.2); Absolute Basophils 0.1 10^3/uL (0-0.2); Absolute Eosinophils 0.1 10^3/uL (0-0.7); Absolute Immature Granulocytes 0.1 10^3/uL (0-0.05); Absolute Lymphocytes 0.9 10^3/uL (1.2-3.4); Absolute Monocytes 0.8 10^3/uL (0.1-0.6); Absolute Neutrophils 5.9 10^3/uL (1.4-6.5); Hematocrit 25.3 % (37.0-47.0); Hemoglobin 7.8 g/dL (12.0-16.0); Mean Corp Hgb Conc. 30.8 g/dL (33.0-37.0); Mean Corpuscular Hgb 29.8 pg (27.0-31.0); Mean Corpuscular Volume 96.6 fL (81.0-99.0); Mean Platelet Volume 11.1 fL (7.4-10.4); Nucleated Red Blood Cells % 0 %; Platelet Count 305 10^3/uL (130-400); Red Blood Cell Count 2.62 10^6/uL (4.20-5.40); Red Cell Dist. Width 17.8 % (11.5-14.5); White Blood Cell Count 7.8 10^3/uL (4.8-10.8)
[2023-09-24 23:43] LABS: ALT (SGPT) 22 U/L (0-35); AST (SGOT) 37 U/L (14-36); Albumin 3.4 g/dl (3.5-5.0); Alkaline Phosphatase 88 U/L (38-126); Blood Urea Nitrogen 21 mg/dl (7-17); Calcium 9.1 mg/dl (8.4-10.2); Carbon Dioxide 28 mmol/L (22-30); Chloride 104 mmol/L (98-107); Glucose 104 mg/dl (70-99); Potassium 4.4 mmol/L (3.5-5.1); Sodium 136 mmol/L (135-145); Total Bilirubin 0.2 mg/dl (0.2-1.3); Total Protein 5.7 g/dl (6.3-8.2); eGFR > 60.00
[2023-09-25] MEDS: ANTIVERT 25 MG PO (00:09)
[2023-09-25 00:12] VITALS: BP 156/68
[2023-09-25 00:30] VITALS: BP 122/83
[2023-09-25 00:49] LABS: Digoxin 0.8 ng/ml (0.8-2.0)
== END 2023-09-25 01:36 | disposition home or self-care (01) ==
LOC: EMR 21:38
PROVIDERS: EMERGENCY PHYSICIAN Emergency Medicine
DX: R42 Dizziness and giddiness (principal); I48.92 Unspecified atrial flutter; J44.9 Chronic obstructive pulmonary disease, unspecified
CPT/HCPCS: 99284; 96360; 70450; 80053; 80162; 85025; 93005

== ENCOUNTER → 2023-10-26 10:38 | Outpatient (REF) | payer OTHER, SELFPAY ==
[2023-10-26 11:54] LABS: % Basophils 1.2 % (0-2); % Eosinophils 0.3 % (0-6); % Immature Granulocytes 0.7 % (0-0.5); % Lymphocytes 10.5 % (20.5-51.1); % Monocytes 10.5 % (1.7-9.3); % Neutrophils 76.8 % (42.2-75.2); Absolute Basophils 0.1 10^3/uL (0-0.2); Absolute Immature Granulocytes 0.1 10^3/uL (0-0.05); Absolute Lymphocytes 0.8 10^3/uL (1.2-3.4); Absolute Monocytes 0.8 10^3/uL (0.1-0.6); Absolute Neutrophils 5.8 10^3/uL (1.4-6.5); Hemoglobin 10.9 g/dL (12.0-16.0); Mean Corp Hgb Conc. 31.1 g/dL (33.0-37.0); Mean Corpuscular Hgb 28.5 pg (27.0-31.0); Mean Corpuscular Volume 91.6 fL (81.0-99.0); Mean Platelet Volume 12.1 fL (7.4-10.4); Nucleated Red Blood Cells % 0 %; Platelet Count 259 10^3/uL (130-400); Red Blood Cell Count 3.82 10^6/uL (4.20-5.40); Red Cell Dist. Width 15.3 % (11.5-14.5); White Blood Cell Count 7.5 10^3/uL (4.8-10.8)
== END ==
LOC: REG 10:38
PROVIDERS: ATTENDING PHYSICIAN Family Medicine
DX: R19.5 Other fecal abnormalities (principal)
CPT/HCPCS: 36415; 85025

== ENCOUNTER → 2023-10-29 12:04 | Outpatient (REF) | payer OTHER, SELFPAY | LOC: RAD 12:04 | PROVIDERS: ATTENDING PHYSICIAN Internal Medicine Hematology & Oncology; FAMILY PHYSICIAN Family Medicine | DX: C78.7 Secondary malignant neoplasm of liver and intrahepatic bile duct (principal); C7A.00 Malignant carcinoid tumor of unspecified site | CPT/HCPCS: 71260; 74177; Q9967 ==

== ENCOUNTER → 2023-11-20 07:20 | Outpatient (REF) | payer OTHER, SELFPAY | LOC: MRI 07:20 | PROVIDERS: ATTENDING PHYSICIAN Specialist; FAMILY PHYSICIAN Family Medicine | DX: G30.1 Alzheimer's disease with late onset (principal) | CPT/HCPCS: 70553; A9575 ==

== ENCOUNTER → 2023-12-02 11:26 | Outpatient (REF) | payer OTHER, SELFPAY ==
[2023-12-02 11:57] LABS: Ionized Calcium 1.14 mMOL/L (1.15-1.33)
[2023-12-02 12:30] LABS: Calcium 8.8 mg/dl (8.4-10.2)
[2023-12-02 13:44] LABS: Folate > 20.0 ng/ml (2.76-20); Vitamin B12 871 pg/ml (239-931)
[2023-12-04 09:18] LABS: Intact PTH 54.7 pg/ml (13.6-85.8)
== END ==
LOC: REG 11:26
PROVIDERS: ATTENDING PHYSICIAN Specialist; FAMILY PHYSICIAN Family Medicine
DX: D51.8 Other vitamin B12 deficiency anemias (principal); E21.3 Hyperparathyroidism, unspecified
CPT/HCPCS: 36415; 82330; 82607; 82746; 83970

== ENCOUNTER → 2023-12-20 10:55 | Outpatient (REF) | payer OTHER, SELFPAY | LOC: RAD 10:55 | PROVIDERS: ATTENDING PHYSICIAN Internal Medicine Hematology & Oncology; FAMILY PHYSICIAN Family Medicine | DX: C78.7 Secondary malignant neoplasm of liver and intrahepatic bile duct (principal); C7A.00 Malignant carcinoid tumor of unspecified site | CPT/HCPCS: 71260; 74177; Q9967 ==